=== PATIENT | female | born 1995 | race Caucasian/White ===

== ENCOUNTER 2018-03-10 11:53 | Emergency (ER) | payer BC ==
[~2018-03-10 11:53] MED LIST: AMOX250S6 PO; Dexamethasone PO; HYDR118S PO; MTF500T PO; ONDA-42 SL; ORTHO TRYCYCLINE PO; TETRACAINE LOLLIPOP PO
--- OUTSIDE RECORDS SUMMARY | 2018-03-10 12:00 | XMS REPORT ---
Author Author NAYELY DILLARD [facility] IN [facility] Address [address] [place] [address] Care Team Providers Care Loading Machine Adjuster Name Role Phone NAYELY DILLARD Unavailable PROBLEMS Type Condition ICD9-CM Code [id number] Code Onset Dates Condition Status SNOMED Code Problem Irregular menstrual bleeding N92.6 Active 61297542 Problem Obese E66.9 Active 121253147 ALLERGIES No Information ENCOUNTERS Encounter Location Date Diagnosis [place] [id number] [place] [address] November, Uses control Z30.9 [place] [address] [address] November, Irregular menstrual bleeding N92.6 ; Uses control Z30.9 and Obese E66.9 [place] [id number] [place] [address] 4[address]- 8796 Mar, Irregular menstrual bleeding N92.6 and Oral contraceptive pill surveillance Z30.41 [place] [id number] [place] [address] 07738- 9267 Feb, [facility] [id number] [place] [address] -[address]16 November, Sore throat J02.9 [place] [id number] [place] [address] Feb, Routine gynecological examination Z01.419 ; Encounter for counseling regarding contraception Z30.9 and Encounter for initial prescription of contraceptive pills Z30.011 [place] [id number] [place] [address] 47655- 9352 Dec, Encounter for Depo-Provera contraception Z30.42 [place] [address] [id number] Dec, [place] [address] [address] Oct, Environmental allergies Z91.09 [place] [id number] [place] [address] 74939- 4357 Sep, Evaluation for contraceptive injection Z30.013 ; Absence of menses due to use of contraceptive N91.2 ; Routine screening for STI (sexually transmitted infection) Z11.3 ; BMI 37.0-37.9, adult Z68.37 ; History of headache Z87.898 and Evaluation for contraceptive implant Z30.018 [place] [id number] [place] [address]37- 5869 Jun, Encounter for immunization Z23 [place] [id number] [place] [address] 25889- 7562 Apr, Headache R51 and Obese E66.9 IMMUNIZATIONS No Known Immunizations SOCIAL HISTORY Never Assessed REASON FOR VISIT PLAN OF CARE VITAL SIGNS MEDICATIONS Medication Instructions Dosage Frequency Start Date End Date Duration Status Aviane 0.1-20 MG-MCG Orally Once a day 1 tablet 24h November, 28 day (s) Active RESULTS No Results PROCEDURES No Known procedures INSTRUCTIONS MEDICATIONS ADMINISTERED No Known Medications MEDICAL (GENERAL) HISTORY Type Description Date Surgical History tonsillectomy and adenoidectomy 2013 Hospitalization History Broken ankle
--- OUTSIDE RECORDS SUMMARY | 2018-03-10 12:00 | XMS REPORT ---
Author Author DAGOBERTO LAINEZ [facility] eClinicalWorks Address Unknown Phone Unavailable Care Team Providers Care Incinerator Plant Supervisor Name Role Phone DAGOBERTO LAINEZ CP Unavailable Allergies No Known Allergies Problems Problem Type Condition Code Onset Dates Condition Status Problem Headache R51 Active Assessment Encounter for immunization Z23 Active Problem Obese E66.9 Active Medications No Known Medications Procedures Procedure Coding System Code Date MENINGOCOCCAL (MENVEO) CPT-4 17007 Jun 06, 2015 SINGLE IMMUNIZATION ADMIN CPT-4 89592 Jun 06, 2015 PROQUAD (MMR/VARICELLA) CPT-4 66963 Jun 06, 2015 IMMUNIZATION ADMIN, EACH ADD (please include units) CPT-4 27620 Jun 06, 2015 Results No Known Results Immunizations Vaccine Administration Date PROQUAD (MMR/VARICELLA) Jun 06, 2015 MENINGOCOCCAL (MENVEO) Jun 06, 2015 Summary Purpose eClinicalWorks Submission
--- OUTSIDE RECORDS SUMMARY | 2018-03-10 12:00 | XMS REPORT ---
Author Author NAYELY DILLARD [facility] Address [address] [place] [address] Care Team Providers Care Evp Global Product Leadership Name Role Phone NAYELY DILLARD Unavailable PROBLEMS Type Condition ICD9-CM Code [id number] Code Onset Dates Condition Status SNOMED Code Problem Irregular menstrual bleeding N92.6 Active 05728062 Problem Obese E66.9 Active 584629856 ALLERGIES Substance Reaction Event Type Date Status Benadryl Tongue swelling Drug Allergy November, Active ENCOUNTERS Encounter Location Date Diagnosis [place] [id number] [place] [address] 57215- 6[address] November, Uses control Z30.9 [place] [address] [address] November, Irregular menstrual bleeding N92.6 ; Uses control Z30.9 and Obese E66.9 [place] [id number] [place] [address] 21643- 6563 Mar, Irregular menstrual bleeding N92.6 and Oral contraceptive pill surveillance Z30.41 [place] [id number] [place] [address] 81576- 9594 Feb, [facility] [id number] [place] [address]11 [address] November, Sore throat J02.9 [place] [address] 390[address]- [address]1 Feb, Routine gynecological examination Z01.419 ; Encounter for counseling regarding contraception Z30.9 and Encounter for initial prescription of contraceptive pills Z30.011 [place] [id number] [place] [address] 85516- 3951 Dec, Encounter for Depo-Provera contraception Z30.42 [place] [address] [place] [address] 91032- 5083 Dec, [place] [id number] [place] [address] 81756- 7705 Oct, Environmental allergies Z91.09 [place] [id number] [place] [address] 64377- 1047 Sep, Evaluation for contraceptive injection Z30.013 ; Absence of menses due to use of contraceptive N91.2 ; Routine screening for STI (sexually transmitted infection) Z11.3 ; BMI 37.0-37.9, adult Z68.37 ; History of headache Z87.898 and Evaluation for contraceptive implant Z30.018 [place] [id number] [place] [address] 23750- 5552 Jun, Encounter for immunization Z23 [address] [address] Apr, Headache R51 and Obese E66.9 IMMUNIZATIONS No Known Immunizations SOCIAL HISTORY Never Assessed REASON FOR VISIT irregular bleeding, spotting in between periods x 6 months----Kvng, h/o PCOS PLAN OF CARE Activity Details Follow Up Dr. Johnston or Dr. Lott Reason:PCOS evaluation Pending Test TESTOSTERONE, TOTAL Pending Test TSH VITAL SIGNS Height 68 in 2017-11-13 Weight 263 lbs 2017-11-13 Temperature 98.2 degrees Fahrenheit 2017-11-13 Heart Rate 100 bpm 2017-11-13 Respiratory Rate 20 2017-11-13 BMI 39.98 kg/m2 2017-11-13 Blood pressure systolic 126 mmHg 2017-11-13 Blood pressure diastolic 70 mmHg 2017-11-13 MEDICATIONS Medication Instructions Dosage Frequency Start Date End Date Duration Status Seasonique 0.15-0.03 &0.01 MG Orally Once a day 1 tablet 24h 91 days Active Patanol 0.1 % Ophthalmic Twice a day 1 drop into affected eye 12h 25 Oct, 2015 Not-Taking RESULTS No Results PROCEDURES Procedure Date Ordered Result Body Site VENIPUNCT, ROUTINE* November 13, 2017 URINE TEST November 13, 2017 Hemoglobin Test Send Out 0 dollar November 13, 2017 ASSAY OF PROLACTIN November 13, 2017 GONADOTROPIN (FSH) November 13, 2017 ASSAY THYROID STIM HORMONE November 13, 2017 COMPREHEN METABOLIC PANEL November 13, 2017 COMPLETE CBC W/AUTO DIFF WBC November 13, 2017 CHORIONIC GONADOTROPIN TEST November 13, 2017 ASSAY OF TOTAL TESTOSTERONE November 13, 2017 INSTRUCTIONS MEDICATIONS ADMINISTERED No Known Medications MEDICAL (GENERAL) HISTORY Type Description Date Surgical History tonsillectomy and adenoidectomy 2013 Hospitalization History Broken ankle
--- OUTSIDE RECORDS SUMMARY | 2018-03-10 12:01 | XMS REPORT | Continuity of Care Document ---
Author Author [facility] Organization [facility] Address Unknown Phone Unavailable Allergies There is no data. Medications There is no data. Problems There is no data. Procedures There is no data. Results Test Result Range Genital Culture, Routine - 03/23/17 18:16 Genital Culture, Routine Note CULTURE, GENITAL - 03/23/17 18:16 Genital Culture, Routine Final report NRG Result 1 NRG Result 2 NRG CBC - 11/13/17 16:33 WHITE BLOOD CELL COUNT 10.0 Thousand/uL 3.8-10.8 RED BLOOD CELL COUNT 4.34 Million/uL 3.80-5.10 HEMOGLOBIN 12.6 g/dL 11.7-15.5 HEMATOCRIT 38.0 % 35.0-45.0 MCV 87.6 fL 80.0-100.0 MCH 29.0 pg 27.0-33.0 MCHC 33.2 g/dL 32.0-36.0 RDW 12.0 % 11.0-15.0 PLATELET COUNT 550 Thousand/uL 140-400 MPV 9.4 fL 7.5-12.5 ABSOLUTE NEUTROPHILS 6310 cells/uL 3490-8122 ABSOLUTE LYMPHOCYTES 2660 cells/uL 850-3900 ABSOLUTE MONOCYTES 860 cells/uL 200-950 ABSOLUTE EOSINOPHILS 130 cells/uL 15-500 ABSOLUTE BASOPHILS 40 cells/uL 0-200 NEUTROPHILS 63.1 % NRG LYMPHOCYTES 26.6 % NRG MONOCYTES 8.6 % NRG EOSINOPHILS 1.3 % NRG BASOPHILS 0.4 % NRG FSH, SERUM - 11/13/17 16:33 FSH 2.0 mIU/mL NRG PROLACTIN - 11/13/17 16:33 PROLACTIN 10.9 ng/mL NRG HCG, QUANTITATIVE - 11/13/17 16:33 HCG, TOTAL, QN <2 mIU/mL NRG THYROID ANALYZER - 11/13/17 16:33 TSH 1.71 mIU/L NRG A1C - 11/13/17 16:33 HEMOGLOBIN A1c 5.1 % of total Hgb <5.7 TESTOSTERONE, TOTAL, LC/MS/MS - 11/13/17 16:33 TESTOSTERONE, TOTAL, LC/MS/MS 12 ng/dL 2-45 Encounters ACCT No. Visit Date/Time Discharge Status Pt. Type Provider Facility Loc./Unit Complaint [id number] 07/07/2013 12:16:00 07/07/2013 16:45:00 DIS Emergency [id number] 06/30/2013 07:37:00 06/30/2013 13:10:00 DIS Outpatient [id number] 06/22/2013 08:07:00 06/22/2013 23:59:59 CLS Outpatient [id number] 03/27/2017 18:09:00 Document Registration [id number] 11/13/2017 16:00:00 11/13/2017 23:59:59 CLS Outpatient LYLE GONZALEZ DO [facility] [id number] 11/13/2017 16:00:00 Document Registration [id number] 03/23/2017 17:40:00 Document Registration
--- OUTSIDE RECORDS SUMMARY | 2018-03-10 12:01 | XMS REPORT ---
Author Author JONATHANEBONI [facility] Address [address] [place] [address] Care Team Providers Care Log Sorting Supervisor Name Role Phone EBONI CASTILLO Unavailable PROBLEMS Type Condition ICD9-CM Code [id number] Code Onset Dates Condition Status SNOMED Code Problem Irregular menstrual bleeding N92.6 Active 54443989 Problem Encounter for initial prescription of contraceptive pills Z30.011 Active 17568194 Problem Obese E66.9 Active 733177102 Problem Headache R51 Active 15291537 Problem Routine gynecological examination Z01.419 Active 343399863 Problem Encounter for counseling regarding contraception Z30.9 Active 48373967 ALLERGIES Substance Reaction Event Type Date Status Benadryl Tongue swelling Drug Allergy Mar, Active ENCOUNTERS Encounter Location Date Diagnosis [facility] [id number] [place] [address] 11189- 4710 Mar, Irregular menstrual bleeding N92.6 and Oral contraceptive pill surveillance Z30.41 [facility] [id number] [place] [address] 78551- 6739 Feb, [facility] IN [facility] [id number] [place] [address]50 [address] November, Sore throat J02.9 [facility] [address] [address] Feb, Routine gynecological examination Z01.419 ; Encounter for counseling regarding contraception Z30.9 and Encounter for initial prescription of contraceptive pills Z30.011 [facility] [id number] [place] [address] 80944- [address]285 Dec, Encounter for Depo-Provera contraception Z30.42 [facility] [id number] [place] [address] 80017- 9992 Dec, [place] [address] [place] [id number] [address] 25 Oct, 2015 Environmental allergies Z91.09 [place] [address] [place] [address] 07 Sep, 2015 Evaluation for contraceptive injection Z30.013 ; Absence of menses due to use of contraceptive N91.2 ; Routine screening for STI (sexually transmitted infection) Z11.3 ; BMI 37.0-37.9, adult Z68.37 ; History of headache Z87.898 and Evaluation for contraceptive implant Z30.018 [place] [address] [place] [address] 93909- 16[address] 02 Jun, 2015 Encounter for immunization Z23 [place] [address] [place] [address] 43298- 0082 22 Apr, 2015 Headache R51 and Obese E66.9 IMMUNIZATIONS No Known Immunizations SOCIAL HISTORY Never Assessed REASON FOR VISIT control f/u/Vaginal bleeding, irregular--tcuppettRN PLAN OF CARE Activity Details Follow Up 4 Weeks Reason:OCP f/u VITAL SIGNS Height 68 in 2017-03-23 Weight 244.1 lbs 2017-03-23 Temperature 98.5 degrees Fahrenheit 2017-03-23 Heart Rate 80 bpm 2017-03-23 Respiratory Rate 18 2017-03-23 BMI 37.11 kg/m2 2017-03-23 Blood pressure systolic 130 mmHg 2017-03-23 Blood pressure diastolic 92 mmHg 2017-03-23 MEDICATIONS Medication Instructions Dosage Frequency Start Date End Date Duration Status Jolessa 0.15-0.03 MG Orally Once a day 1 tablet 24h 18 Mar, 2017 90 days Active RESULTS Name Result Date Reference Range TEST, URINE (IN HOUSE) 2017-03-23 RESULTS negative Lot # [id number] Control + Exp date 08/05/18 TRICHOMONAS (IN HOUSE) 2017-03-23 TRICHOMONAS Negative Control + Lot # [id number] Exp date 05/2017 BACTERIAL VAGINOSIS (IN HOUSE) 2017-03-23 RESULTS Negative Control + Lot # [id number] Exp date 08/2017 CULTURE, GENITAL 2017-03-23 Genital Culture, Routine Final report Result 1 Result 2 GC/CHLAM PROBE (STATE) 2017-03-23 CHLAMYDIA negative GC negative PROCEDURES Procedure Date Ordered Result Body Site No Charge Mar 23, 2017 TRICHOMONAS ASSAY W/OPTIC Mar 23, 2017 CULTURE, BACTERIA, OTHER Mar 23, 2017 Bacterial Vaginosis In House Mar 23, 2017 URINE TEST Mar 23, 2017 INSTRUCTIONS MEDICATIONS ADMINISTERED No Known Medications MEDICAL (GENERAL) HISTORY Type Description Date Surgical History tonsillectomy and adenoidectomy 2013 Hospitalization History Broken ankle
--- OUTSIDE RECORDS SUMMARY | 2018-03-10 12:01 | XMS REPORT ---
Author Author ANN SMITH Organization [facility] Address [address] [place] [address] Care Team Providers Care Stainless Steel Finisher Name Role Phone ANN SMITH Unavailable PROBLEMS Type Condition ICD9-CM Code CPX19-LK Code Onset Dates Condition Status SNOMED Code Problem Irregular menstrual bleeding N92.6 Active 16653515 Problem Encounter for initial prescription of contraceptive pills Z30.011 Active 56194376 Problem Obese E66.9 Active 978986036 Problem Headache R51 Active 38069085 Problem Routine gynecological examination Z01.419 Active 655261237 Problem Encounter for counseling regarding contraception Z30.9 Active 25310934 ALLERGIES Substance Reaction Event Type Date Status Benadryl Tongue swelling Drug Allergy November, Active SOCIAL HISTORY Never Assessed PLAN OF CARE Activity Details Follow Up prn Reason: VITAL SIGNS Height 68 in 2016-11-13 Weight 230.6 lbs 2016-11-13 Temperature 97.6 degrees Fahrenheit 2016-11-13 Heart Rate 100 bpm 2016-11-13 Respiratory Rate 22 2016-11-13 BMI 35.06 kg/m2 2016-11-13 Blood pressure systolic 126 mmHg 2016-11-13 Blood pressure diastolic 90 mmHg 2016-11-13 MEDICATIONS Medication Instructions Dosage Frequency Start Date End Date Duration Status Seasonique 0.15-0.03 &0.01 MG Orally Once a day 1 tablet 24h Feb, 91 day(s) Active Amoxicillin 500 MG Orally every 12 hrs 1 capsule 12h November, November, 10 day(s) Active RESULTS Name Result Date Reference Range STREP A (IN HOUSE) 2016-11-13 STREP A negative Control + Lot # [id number] Exp date [id number] PROCEDURES Procedure Date Ordered Result Body Site STREP A ASSAY W/OPTIC November 13, 2016 IMMUNIZATIONS No Known Immunizations MEDICAL (GENERAL) HISTORY Type Description Date Surgical History tonsillectomy and adenoidectomy 2013 Hospitalization History Broken ankle
--- OUTSIDE RECORDS SUMMARY | 2018-03-10 12:01 | XMS REPORT ---
Author Author EBONI CASTILLO Organization eClinicalWorks Address Unknown Phone Unavailable Care Team Providers Care Twister Frame Tender Name Role Phone EBONI CASTILLO CP Unavailable Allergies, Adverse Reactions, Alerts Substance Reaction Event Type Benadryl Tongue swelling Drug Allergy Problems Problem Type Condition Code Onset Dates Condition Status Problem Headache R51 Active Assessment Headache R51 Active Problem Obese E66.9 Active Assessment Obese E66.9 Active Medications Medication Code System Code Instructions Start Date End Date Status Dosage Melatonin [facility] [address]-23 5 MG Orally Once a day at bedtime Apr 26, 2015 1 tablet at bedtime as needed with food Ibuprofen [facility] [address]-98 800 MG Orally Three times a day as needed for headache Apr 26, 2015 1 tablet Procedures Procedure Coding System Code Date Office Visit, New Pt., Level 3 CPT-4 90387 Apr 26, 2015 Vital Signs Date/Time: Apr 26, 2015 BMIPercentile 97.98 % Temperature 99.1 F Wt Percentile 99.01 % Weight 234.2 lbs Height 68 in Pain Scale 7 1-10 Blood Pressure Diastolic 92 mmHg Blood Pressure Systolic 124 mmHg Cardiac Monitoring Heart Rate 80 bpm Ht Percentile 93.11 % BMI 35.61 Index Results No Known Results Summary Purpose eClinicalWorks Submission
--- OUTSIDE RECORDS SUMMARY | 2018-03-10 12:01 | XMS REPORT ---
Author DOYLE Ann [facility] eClinicalWorks Address Unknown Phone Unavailable Care Team Providers Care Support Service Tech Name Role Phone DOYLE BRADFORD CP Unavailable Allergies, Adverse Reactions, Alerts Substance Reaction Event Type Benadryl Tongue swelling Drug Allergy Problems Problem Type Condition Code Onset Dates Condition Status Problem Headache R51 Active Assessment Environmental allergies Z91.09 Active Problem Obese E66.9 Active Medications Medication Code System Code Instructions Start Date End Date Status Dosage Patanol [facility] [address]-52 0.1 % Ophthalmic Twice a day October 29, 2015 1 drop into affected eye Procedures Procedure Coding System Code Date DEXAMETHASONE 4MG/ML (PER 1 MG) CPT-4 J1100 October 29, 2015 THER/PROPH/DIAG INJ, SC/IM CPT-4 52326 October 29, 2015 Office Visit, Est Pt., Level 3 CPT-4 70238 October 29, 2015 DEPO MEDROL 40 MG/ML CPT-4 J1030 October 29, 2015 Vital Signs Date/Time: October 29, 2015 Temperature 97.0 F Weight 228.4 lbs Height 68 in BMI 34.72 Index Blood Pressure Diastolic 82 mmHg Blood Pressure Systolic 128 mmHg Cardiac Monitoring Heart Rate 88 bpm BMIPercentile 97.52 % Wt Percentile 98.88 % Results No Known Results Summary Purpose eClinicalWorks Submission
--- OUTSIDE RECORDS SUMMARY | 2018-03-10 12:01 | XMS REPORT ---
Author Author JAY HERNANDEZ Organization [employer] Address Unknown Phone Unavailable Care Team Providers Care On Site Construction Superintendent Name Role Phone JAY HERNANDEZ CP Unavailable Allergies, Adverse Reactions, Alerts Substance Reaction Event Type Benadryl Tongue swelling Drug Allergy Problems Problem Type Condition Code Onset Dates Condition Status Assessment Encounter for initial prescription of contraceptive pills Z30.011 Active Problem Encounter for counseling regarding contraception Z30.9 Active Problem Encounter for initial prescription of contraceptive pills Z30.011 Active Problem Routine gynecological examination Z01.419 Active Assessment Routine gynecological examination Z01.419 Active Assessment Encounter for counseling regarding contraception Z30.9 Active Problem Obese E66.9 Active Problem Headache R51 Active Medications Medication Code System Code Instructions Start Date End Date Status Dosage Seasonique [facility] [address]-97 0.15-0.03 &0.01 MG Orally Once a day Feb 28, 2016 1 tablet Depo-Provera [facility] [address]-15 150 MG/ML Intramuscular 1 ml Procedures Procedure Coding System Code Date No Charge CPT-4 61107 Feb 28, 2016 [place] VAG, DNA, DIR PROBE CPT-4 32071 Feb 28, 2016 CULTURE, BACTERIA, OTHER CPT-4 09410 Feb 28, 2016 Preventive Care Est Pt. Age 18-39 CPT-4 66825 Feb 28, 2016 URINE TEST CPT-4 37609 Feb 28, 2016 Vital Signs Date/Time: Feb 28, 2016 Cardiac Monitoring Heart Rate 84 bpm Weight 201.0 lbs Height 68 in Wt Percentile 97.57 % BMI 30.56 Index Blood Pressure Diastolic 88 mmHg Blood Pressure Systolic 128 mmHg BMIPercentile 94.68 % Results No Known Results Summary Purpose eClinicalWorks Submission
--- NOTE | 2018-03-10 12:13 | ED General ---
General Stated Complaint: WEAK/FEELS LIKE GOING TO PASS OUT Source of Information: Patient Exam Limitations: No Limitations History of Present Illness Date Seen by Provider: Mar 10, 2018 Time Seen by Provider: 12:12 Initial Comments To ER With reports of diffuse weakness, feels like she is going to pass out. States that she feels tingling from her head to her toes. Palpitations and shortness of breath. She is recently had an upper respiratory infection with runny nose and she took an fzir-rfw-soabfyn equate version of cough and cold remedy at 7:30 this morning. The symptoms began 30 minutes ago. Timing/Duration: 1-2 Days Severity: Moderate Allergies and Home Medications Allergies Coded Allergies: promethazine (Unverified Allergy, 06/22/13) Home Medications [Ortho-Trycycline] , 25 MG PO DAILY, (Reported) Patient Home Medication List Home Medication List Reviewed: Yes Review of Systems Review of Systems Constitutional: see HPI EENTM: see HPI Respiratory: see HPI, short of breath Cardiovascular: no symptoms reported Genitourinary: no symptoms reported Musculoskeletal: no symptoms reported Skin: no symptoms reported Psychiatric/Neurological: No Symptoms Reported Hematologic/Lymphatic: No Symptoms Reported Past Jesfpfc-Mfyhrj-Ogddoo Hx Patient Social History Recent Foreign Travel: No Contact w/Someone Who Travel: No Past Medical History Reproductive Disorders: Yes (PCOS) Physical Exam Vital Signs Vital Signs - First Documented 03/10/18 12:42 Temp 97.7 Pulse 112 Resp 18 B/P (MAP) 141/77 (98) Pulse Ox 99 O2 Delivery Room Air Capillary Refill : Height, Weight, BMI Height: '" Weight: 210lbs. oz. 95.774170id; BMI Method:Stated General Appearance: No Apparent Distress, WD/WN, Anxious, Obese HEENT: PERRL/EOMI, TMs Normal Neck: Full Range of Motion, Normal Inspection Respiratory: No Accessory Muscle Use, No Respiratory Distress Cardiovascular: Normal Peripheral Pulses, Tachycardia Gastrointestinal: No Pulsatile Mass, Non Tender, Soft Extremity: Normal Capillary Refill, Normal Inspection Neurologic/Psychiatric: Alert, Oriented x3 Skin: Normal Color, Warm/Dry Progress/Results/Core Measures Suspected Sepsis SIRS Temperature: Pulse: Respiratory Rate: Laboratory Tests 03/10/18 12:06: White Blood Count 13.5H Blood Pressure / Mean: Laboratory Tests 03/10/18 12:06: Creatinine 0.73, Platelet Count 729H, Total Bilirubin 0.2 Results/Orders Lab Results Laboratory Tests Test 03/10/18 12:05 03/10/18 12:06 03/10/18 13:38 Range/Units Glucometer 103 70-110 MG/DL White Blood Count 13.5 H 4.3-11.0 10^3/uL Red Blood Count 5.01 4.35-5.85 10^6/uL Hemoglobin 14.9 11.5-16.0 G/DL Hematocrit 44 35-52 % Mean Corpuscular Volume 87 80-99 FL Mean Corpuscular Hemoglobin 30 25-34 PG Mean Corpuscular Hemoglobin Concent 34 32-36 G/DL Red Cell Distribution Width 12.9 10.0-14.5 % Platelet Count 729 H 130-400 10^3/uL Mean Platelet Volume 9.0 7.4-10.4 FL Neutrophils (%) (Auto) 68 42-75 % Lymphocytes (%) (Auto) 21 12-44 % Monocytes (%) (Auto) 10 0-12 % Eosinophils (%) (Auto) 1 0-10 % Basophils (%) (Auto) 0 0-10 % Neutrophils # (Auto) 9.1 H 1.8-7.8 X 10^3 Lymphocytes # (Auto) 2.8 1.0-4.0 X 10^3 Monocytes # (Auto) 1.4 H 0.0-1.0 X 10^3 Eosinophils # (Auto) 0.2 0.0-0.3 10^3/uL Basophils # (Auto) 0.0 0.0-0.1 10^3/uL D-Dimer 0.32 0.00-0.49 UG/ML Sodium Level 136 135-145 MMOL/L Potassium Level 3.4 L 3.6-5.0 MMOL/L Chloride Level 104 98-107 MMOL/L Carbon Dioxide Level 18 L 21-32 MMOL/L Anion Gap 14 5-14 MMOL/L Blood Urea Nitrogen 8 7-18 MG/DL Creatinine 0.73 0.60-1.30 MG/DL Estimat Glomerular Filtration Rate > 60 BUN/Creatinine Ratio 11 Glucose Level 101 70-105 MG/DL Calcium Level 9.7 8.5-10.1 MG/DL Corrected Calcium 9.3 8.5-10.1 MG/DL Total Bilirubin 0.2 0.1-1.0 MG/DL Aspartate Amino Transf (AST/SGOT) 16 5-34 U/L Alanine Aminotransferase (ALT/SGPT) 19 0-55 U/L Alkaline Phosphatase 120 40-136 U/L Total Protein 7.7 6.4-8.2 GM/DL Albumin 4.5 3.2-4.5 GM/DL Thyroid Stimulating Hormone (TSH) 1.91 0.35-4.94 UIU/ML Urine Color YELLOW Urine Clarity CLEAR Urine pH 6.5 5-9 Urine Specific [place] 1.010 L 1.016-1.022 Urine Protein 1+ H NEGATIVE Urine Glucose (UA) NEGATIVE NEGATIVE Urine Ketones NEGATIVE NEGATIVE Urine Nitrite NEGATIVE NEGATIVE Urine Bilirubin NEGATIVE NEGATIVE Urine Urobilinogen NORMAL NORMAL MG/DL Urine Leukocyte Esterase NEGATIVE NEGATIVE Urine RBC (Auto) 3+ H NEGATIVE Urine RBC RARE /HPF Urine WBC 0-2 /HPF Urine Squamous Epithelial Cells 0-2 /HPF Urine Renal Epithelial Cells NONE /HPF Urine Crystals NONE /LPF Urine Bacteria NEGATIVE /HPF Urine Casts NONE /LPF Urine Mucus NEGATIVE /LPF Urine Yeast FEW H /HPF Urine Culture Indicated NO Urine Opiates Screen NEGATIVE NEGATIVE Urine Oxycodone Screen NEGATIVE NEGATIVE Urine Methadone Screen NEGATIVE NEGATIVE Urine Propoxyphene Screen NEGATIVE NEGATIVE Urine Barbiturates Screen NEGATIVE NEGATIVE Ur Tricyclic Antidepressants Screen NEGATIVE NEGATIVE Urine Phencyclidine Screen NEGATIVE NEGATIVE Urine Amphetamines Screen NEGATIVE NEGATIVE Urine Methamphetamines Screen NEGATIVE NEGATIVE Urine Benzodiazepines Screen NEGATIVE NEGATIVE Urine Cocaine Screen NEGATIVE NEGATIVE Urine Cannabinoids Screen NEGATIVE NEGATIVE My Orders Orders - BRAYAN PUENTES APRN Cbc With Automated Diff (03/10/18 12:10) Comprehensive Metabolic Panel (03/10/18 12:10) Thyroid Stimulating Hormone (03/10/18 12:10) Iv Heplock-Insert (Order) (03/10/18 12:10) Ua Culture If Indicated (03/10/18 12:10) Drug Screen Stat (Urine) (03/10/18 12:10) Continuous Ekg Monitoring (03/10/18 12:10) Ekg Tracing (03/10/18 12:10) Lorazepam Injection (Ativan Injection) (03/10/18 12:15) Tick Panel With Lyme Eia (03/10/18 12:41) Fibrin Degradation Products (03/10/18 13:39) Lorazepam Injection (Ativan Injection) (03/10/18 13:45) Ns Iv 1000 Ml (Sodium Chloride 0.9%) (03/10/18 13:45) Medications Given in ED Current Medications Medications Dose Ordered Sig/Jayesh Route Start Time Stop Time Status Last Admin Dose Admin Lorazepam 0.5 mg ONCE PRN IVP 03/10/18 12:15 03/10/18 13:54 0.5 MG Vital Signs/I&O 03/10/18 12:42 Temp 97.7 Pulse 112 Resp 18 B/P (MAP) 141/77 (98) Pulse Ox 99 O2 Delivery Room Air Capillary Refill : Departure Communication (Admissions) 1432- patient reports that she is feeling better at this time. She would like a prescription for something for the anxiety in case this happens again at home. I discussed with her the thrombocytosis and the need for follow-up with primary care as she may need a hematology referral. Impression Primary Impression: Diffuse tingling Additional Impressions: Thrombocytosis Dyspnea Disposition: HOME, SELF-CARE Condition: Improved Departure-Patient Inst. Decision time for Depature: 14:09 Referrals: KAITLYNN HOWE MD (PCP/Family) Primary Care Physician Patient Instructions: Paresthesias (DC), Shortness of Breath (Dyspnea) Add. Discharge Instructions: 1. Follow-up with your doctor this week for recheck. Your platelet count was elevated today but it has been elevated for several years. This is not the cause of your symptoms today but should be further evaluated. Take a baby aspirin daily. Take the anxiety medication on an as-needed basis. Avoid any additional cough/cold remedies. Return to ER for any concerns. Scripts Lorazepam (Lorazepam) 1 Mg Tablet 1 MG PO BID PRN for ANXIETY, #10 TAB Prov: BRAYAN PUENTES APRN 03/10/18 Work/School Note: Work Release Form Date Seen in the Emergency Department: Mar 10, 2018 Return to Work: Mar 11, 2018 Copy Copies To 1: LYLE GONZALEZ PETER J APRN Mar 10, 2018 12:13
[2018-03-10 12:17] LABS: BASOPHILS % (AUTO) 0 % (0-10); EOSINOPHILS # (AUTO) 0.2 10^3/uL (0.0-0.3); EOSINOPHILS % (AUTO) 1 % (0-10); HEMATOCRIT 44 % (35-52); HEMOGLOBIN 14.9 G/DL (11.5-16.0); LYMPHOCYTES # (AUTO) 2.8 X 10^3 (1.0-4.0); LYMPHOCYTES % (AUTO) 21 % (12-44); MEAN CORPUSCULAR HEMOGLOBIN 30 PG (25-34); MEAN CORPUSCULAR HGB CONC 34 G/DL (32-36); MEAN CORPUSCULAR VOLUME 87 FL (80-99); MONOCYTES # (AUTO) 1.4 X 10^3 (0.0-1.0); MONOCYTES % (AUTO) 10 % (0-12); NEUTROPHILS # (AUTO) 9.1 X 10^3 (1.8-7.8); NEUTROPHILS % (AUTO) 68 % (42-75); PLATELET COUNT 729 10^3/uL (130-400); RED BLOOD COUNT 5.01 10^6/uL (4.35-5.85); RED CELL DISTRIBUTION WIDTH 12.9 % (10.0-14.5); WHITE BLOOD COUNT 13.5 10^3/uL (4.3-11.0)
[2018-03-10] MEDS: LORazepam INJ 2 MG/ML (ATIVAN) VIAL IVP PRN ×2 (12:36→13:54)
[2018-03-10 12:45] LABS: ALANINE AMINOTRANSFERASE 19 U/L (0-55); ALBUMIN 4.5 GM/DL (3.2-4.5); ALKALINE PHOSPHATASE 120 U/L (40-136); BILIRUBIN,TOTAL 0.2 MG/DL (0.1-1.0); BUN/CREATININE RATIO 11; CALCIUM 9.7 MG/DL (8.5-10.1); CARBON DIOXIDE 18 MMOL/L (21-32); CHLORIDE 104 MMOL/L (98-107); CREATININE SERUM 0.73 MG/DL (0.60-1.30); GFR ESTIMATED > 60; GLUCOSE 101 MG/DL (70-105); POTASSIUM 3.4 MMOL/L (3.6-5.0); SODIUM 136 MMOL/L (135-145); TOTAL PROTEIN 7.7 GM/DL (6.4-8.2)
[2018-03-10] MEDS ORDERED: NS IV 1000 ML 1,000 ML IV SCH (13:45)
[2018-03-10] MEDS ORDERED: LORazepam INJ 2 MG/ML (ATIVAN) VIAL IVP PRN (13:45)
[2018-03-10 13:49] LABS: BILIRUBIN,URINE NEGATIVE (NEGATIVE); CLARITY,URINE CLEAR; COLOR,URINE YELLOW; GLUCOSE, URINE (UA) NEGATIVE (NEGATIVE); KETONES,URINE NEGATIVE (NEGATIVE); LEUKOCYTE ESTERASE ,URINE NEGATIVE (NEGATIVE); NITRITE,URINE NEGATIVE (NEGATIVE); PH,URINE 6.5 (5-9); PROTEIN,URINE 1+ (NEGATIVE); UROBILINOGEN,URINE NORMAL (NORMAL)
[2018-03-10 14:01] LABS: RBC,URINE RARE /HPF; WBC,URINE 0-2 /HPF
[2018-03-10 14:02] LABS: BACTERIA,URINE NEGATIVE /HPF; SQUAMOUS EPITHELIAL CELL,UR 0-2 /HPF; YEAST,URINE FEW /HPF
[2018-03-10 14:05] LABS: AMPHETAMINE SCREEN, URINE NEGATIVE (NEGATIVE); BARBITURATE SCREEN URINE NEGATIVE (NEGATIVE); BENZODIAZEPINES SCREEN URINE NEGATIVE (NEGATIVE); CANNABINOID SCREEN, URINE NEGATIVE (NEGATIVE); COCAINE SCREEN URINE NEGATIVE (NEGATIVE); METHADONE STAT NEGATIVE (NEGATIVE); METHAMPHETAMINE SCREEN URINE S NEGATIVE (NEGATIVE); OPIATE SCREEN URINE NEGATIVE (NEGATIVE); OXYCODONE STAT NEGATIVE (NEGATIVE); PROPOXYPHENE STAT NEGATIVE (NEGATIVE); TRICYCLIC ANTIDEPRESSANTS SCRE NEGATIVE (NEGATIVE)
[2018-03-10] MEDS ORDERED: LORA1TAB PO (14:34)
[2018-03-10 15:00] VITALS: BP 144/96
== END 2018-03-10 15:00 | disposition home or self-care (01) ==
LOC: EDUNIT# 11:53 → ER 11:55
DX: R20.2 Paresthesia of skin (principal); D47.3 Essential (hemorrhagic) thrombocythemia; R06.00 Dyspnea, unspecified; Z88.8 Allergy status to other drugs, medicaments and biological substances; Z87.448 Personal history of other diseases of urinary system
CPT/HCPCS: 36415; 80053; 80306; 81000; 82962; 84443; 85025; 85379; 86618; 86666; 86668; 86757; 93005; 96374; 96376

== ENCOUNTER 2018-03-16 09:25 | Outpatient (RCR) | payer BC ==
[~2018-03-16 09:25] MED LIST changes: +LORA1TAB PO
[2018-03-16 09:49] LABS: BASOPHILS % (AUTO) 0 % (0-10); EOSINOPHILS # (AUTO) 0.2 10^3/uL (0.0-0.3); EOSINOPHILS % (AUTO) 2 % (0-10); HEMATOCRIT 39 % (35-52); LYMPHOCYTES # (AUTO) 2.5 X 10^3 (1.0-4.0); LYMPHOCYTES % (AUTO) 24 % (12-44); MEAN CORPUSCULAR HEMOGLOBIN 29 PG (25-34); MEAN CORPUSCULAR HGB CONC 34 G/DL (32-36); MEAN CORPUSCULAR VOLUME 87 FL (80-99); MEAN PLATELET VOLUME 8.8 FL (7.4-10.4); MONOCYTES # (AUTO) 0.9 X 10^3 (0.0-1.0); MONOCYTES % (AUTO) 9 % (0-12); NEUTROPHILS % (AUTO) 66 % (42-75); PLATELET COUNT 600 10^3/uL (130-400); RED BLOOD COUNT 4.42 10^6/uL (4.35-5.85); WHITE BLOOD COUNT 10.7 10^3/uL (4.3-11.0)
[2018-03-16 10:08] LABS: ALANINE AMINOTRANSFERASE 17 U/L (0-55); ALBUMIN 4.2 GM/DL (3.2-4.5); ALKALINE PHOSPHATASE 116 U/L (40-136); BILIRUBIN,TOTAL 0.3 MG/DL (0.1-1.0); BUN/CREATININE RATIO 13; CALCIUM 9.6 MG/DL (8.5-10.1); CARBON DIOXIDE 22 MMOL/L (21-32); CHLORIDE 107 MMOL/L (98-107); CREATININE SERUM 0.67 MG/DL (0.60-1.30); GFR ESTIMATED > 60; GLUCOSE 95 MG/DL (70-105); POTASSIUM 3.9 MMOL/L (3.6-5.0); SODIUM 139 MMOL/L (135-145); TOTAL PROTEIN 7.2 GM/DL (6.4-8.2)
== END 2018-04-04 | disposition home or self-care (01) ==
LOC: ONC 09:25
PROVIDERS: ATTEND Internal Medicine Hematology & Oncology
DX: D47.3 Essential (hemorrhagic) thrombocythemia (principal); E66.9 Obesity, unspecified; F43.9 Reaction to severe stress, unspecified; Z79.82 Long term (current) use of aspirin
CPT/HCPCS: 36415; 80053; 81270; 85025; 99214

== ENCOUNTER → 2018-04-19 | Outpatient (CLI) | payer BC ==
[~2018-04-19] MED LIST changes: +GADOBUTROL 15 MMOL/15 ML (GADAVIST) VIAL IV ONE
--- NOTE | 2018-04-19 12:29 | Diagnostic Imaging Report ---
PROCEDURE: MR imaging of the brain with and without contrast. TECHNIQUE: Multiplanar, multisequence MR imaging of the brain was performed with and without contrast. INDICATION: Dizziness and head pressure for 4 weeks. No prior studies are available for comparison. FINDINGS: The ventricles and sulci are within normal limits. No sulcal effacement, midline shift or hemorrhage is detected. No diffusion restriction is identified. The normal expected flow-voids within the carotid siphons are seen. The corpus callosum is unremarkable. The sella and parasellar structures are unremarkable. No abnormal enhancement is seen following contrast administration. IMPRESSION: Unremarkable pre-and postcontrast MRI of the brain. Dictated by: Dictated on workstation # [id number]
== END ==
LOC: RAD 10:54
PROVIDERS: ATTEND Nurse Practitioner Primary Care
DX: G45.9 Transient cerebral ischemic attack, unspecified (principal); D47.3 Essential (hemorrhagic) thrombocythemia
CPT/HCPCS: 70553

== ENCOUNTER 2018-04-21 15:00 | Outpatient (RCR) | payer BC, OTHER ==
[~2018-04-21 15:00] MED LIST changes: -GADOBUTROL 15 MMOL/15 ML (GADAVIST) VIAL IV ONE
[2018-04-21 15:15] LABS: BASOPHILS % (AUTO) 0 % (0-10); EOSINOPHILS # (AUTO) 0.1 10^3/uL (0.0-0.3); EOSINOPHILS % (AUTO) 1 % (0-10); HEMATOCRIT 38 % (35-52); HEMOGLOBIN 13.3 G/DL (11.5-16.0); LYMPHOCYTES # (AUTO) 2.7 X 10^3 (1.0-4.0); LYMPHOCYTES % (AUTO) 24 % (12-44); MEAN CORPUSCULAR HEMOGLOBIN 30 PG (25-34); MEAN CORPUSCULAR HGB CONC 35 G/DL (32-36); MEAN CORPUSCULAR VOLUME 88 FL (80-99); MEAN PLATELET VOLUME 9.2 FL (7.4-10.4); MONOCYTES % (AUTO) 9 % (0-12); NEUTROPHILS # (AUTO) 7.6 X 10^3 (1.8-7.8); NEUTROPHILS % (AUTO) 67 % (42-75); PLATELET COUNT 509 10^3/uL (130-400); RED BLOOD COUNT 4.38 10^6/uL (4.35-5.85); RED CELL DISTRIBUTION WIDTH 12.9 % (10.0-14.5); WHITE BLOOD COUNT 11.4 10^3/uL (4.3-11.0)
[2018-04-21 15:37] LABS: ALANINE AMINOTRANSFERASE 27 U/L (0-55); ALBUMIN 4.5 GM/DL (3.2-4.5); ALKALINE PHOSPHATASE 104 U/L (40-136); BILIRUBIN,TOTAL 0.3 MG/DL (0.1-1.0); BUN/CREATININE RATIO 10; CALCIUM 9.8 MG/DL (8.5-10.1); CARBON DIOXIDE 24 MMOL/L (21-32); CHLORIDE 105 MMOL/L (98-107); CREATININE SERUM 0.72 MG/DL (0.60-1.30); GFR ESTIMATED > 60; GLUCOSE 97 MG/DL (70-105); POTASSIUM 3.5 MMOL/L (3.6-5.0); SODIUM 139 MMOL/L (135-145); TOTAL PROTEIN 7.5 GM/DL (6.4-8.2)
== END 2018-07-20 | disposition home or self-care (01) ==
LOC: ONC 15:00
PROVIDERS: ATTEND Internal Medicine Hematology & Oncology
DX: D47.3 Essential (hemorrhagic) thrombocythemia (principal); E66.9 Obesity, unspecified; F43.9 Reaction to severe stress, unspecified; Z79.82 Long term (current) use of aspirin
CPT/HCPCS: 36415; 80053; 85025; 99213

== ENCOUNTER → 2018-11-05 | Outpatient (CLI) | payer BC, OTHER ==
[2018-11-05 08:38] LABS: BASOPHILS % (AUTO) 0 % (0-10); EOSINOPHILS # (AUTO) 0.1 10^3/uL (0.0-0.3); EOSINOPHILS % (AUTO) 1 % (0-10); HEMATOCRIT 39 % (35-52); HEMOGLOBIN 13.1 G/DL (11.5-16.0); LYMPHOCYTES # (AUTO) 2.3 X 10^3 (1.0-4.0); LYMPHOCYTES % (AUTO) 25 % (12-44); MEAN CORPUSCULAR HEMOGLOBIN 30 PG (25-34); MEAN CORPUSCULAR HGB CONC 33 G/DL (32-36); MEAN CORPUSCULAR VOLUME 91 FL (80-99); MEAN PLATELET VOLUME 9.2 FL (7.4-10.4); MONOCYTES # (AUTO) 0.9 X 10^3 (0.0-1.0); MONOCYTES % (AUTO) 10 % (0-12); NEUTROPHILS # (AUTO) 5.7 X 10^3 (1.8-7.8); NEUTROPHILS % (AUTO) 64 % (42-75); PLATELET COUNT 406 10^3/uL (130-400); RED CELL DISTRIBUTION WIDTH 12.3 % (10.0-14.5)
[2018-11-05 08:59] LABS: ALANINE AMINOTRANSFERASE 30 U/L (0-55); ALBUMIN 4.3 GM/DL (3.2-4.5); ALKALINE PHOSPHATASE 125 U/L (40-136); AMYLASE 40 U/L (25-125); BILIRUBIN,TOTAL 0.3 MG/DL (0.1-1.0); BUN/CREATININE RATIO 16; CALCIUM 9.6 MG/DL (8.5-10.1); CARBON DIOXIDE 24 MMOL/L (21-32); CHLORIDE 105 MMOL/L (98-107); CREATININE SERUM 0.73 MG/DL (0.60-1.30); GFR ESTIMATED > 60; GLUCOSE 92 MG/DL (70-105); LIPASE 25 U/L (8-78); SODIUM 138 MMOL/L (135-145); TOTAL PROTEIN 7.2 GM/DL (6.4-8.2)
== END ==
LOC: LAB 08:23
PROVIDERS: ATTEND Internal Medicine
DX: R10.84 Generalized abdominal pain (principal); R63.4 Abnormal weight loss; Z87.42 Personal history of other diseases of the female genital tract
CPT/HCPCS: 36415; 80053; 82150; 83690; 85025

== ENCOUNTER → 2018-11-09 | Outpatient (CLI) | payer BC ==
--- NOTE | 2018-11-09 15:04 | Diagnostic Imaging Report ---
PROCEDURE: US Hepatic (Liver). TECHNIQUE: Multiple real-time grayscale images were obtained over the right upper quadrant in various projections. INDICATION: Abnormal liver enzymes. FINDINGS: The liver is normal in size at 15 cm. No discrete liver mass is identified. Portal vein is patent and shows normal direction of flow. Gallbladder is without stones or sludge. No wall thickening or biliary ductal dilatation is seen. Pancreas is poorly visualized due to bowel gas. Right kidney is unremarkable. There is no ascites. IMPRESSION: Unremarkable right upper quadrant ultrasound. Dictated by: Dictated on workstation # [id number]
== END ==
LOC: RAD 07:59
PROVIDERS: ATTEND Internal Medicine
DX: R74.8 Abnormal levels of other serum enzymes (principal)
CPT/HCPCS: 76705

== ENCOUNTER → 2018-12-13 | Outpatient (CLI) | payer BC ==
[~2018-12-13] MED LIST changes: +ASPI-999 PO; +CATHETER FLUSH 10 ML SYR IV PRN; +CIPR500T4 PO; +CYCL10TA9 PO; +HYDR-3816 PO; +METR500T PO; +ONDN4T PO; +RANI150T46 PO; +morphine INJ 10 MG/ML 1ML (SYR OR VIAL) IVP STA
--- NOTE | 2018-12-13 12:40 | Diagnostic Imaging Report ---
EXAMINATION: Hepatobiliary scan without ejection fraction. INDICATION: Right upper quadrant pain. COMPARISON: There are no prior nuclear medicine studies available for comparison. The hepatic ultrasound exam of 11/09/2018 failed to show any abnormality of the liver or gallbladder. FINDINGS: 5.4 mCi of 99m technetium Choletec was administered. There was uptake and excretion of the radiotracer by the liver. However, there was no accumulation of the radiotracer within the gallbladder at 60 minutes. A followup image taken 10 minutes later again failed to show any uptake of the radiotracer by the gallbladder. Subsequently, 2 mg of morphine was administered. 1.0 mCi of 99m technetium Choletec was also reinjected. Following the administration of morphine, there was uptake of the radiotracer by the gallbladder at 80 minutes. IMPRESSION: 1. There is delayed uptake of the radiotracer by the gallbladder. This does suggest that there could be elements of both acute and chronic cholecystitis present. Clinical followup is recommended. 2. There is extension of the radiotracer into the small bowel indicating the common bile duct is not obstructed. Dictated by: Dictated on workstation # [id number]
== END ==
LOC: CARD 09:54
PROVIDERS: ATTEND Internal Medicine
DX: R10.11 Right upper quadrant pain (principal); K82.8 Other specified diseases of gallbladder
CPT/HCPCS: 78226

== ENCOUNTER 2018-12-16 05:30 | Outpatient (CLI) | payer BC ==
[~2018-12-16] VITALS: Ht 180.3 cm; Wt 94.3 kg
[~2018-12-16 05:30] MED LIST changes: -ASPI-999 PO; -CATHETER FLUSH 10 ML SYR IV PRN; -CIPR500T4 PO; -CYCL10TA9 PO; -HYDR-3816 PO; -METR500T PO; -ONDN4T PO; -RANI150T46 PO; -morphine INJ 10 MG/ML 1ML (SYR OR VIAL) IVP STA
[2018-12-16] MEDS ORDERED: ASPI-999 PO (12:33)
[2018-12-16] MEDS ORDERED: RANI150T46 PO (12:33)
[2018-12-16] MEDS ORDERED: CYCL10TA9 PO (12:33)
[2018-12-17] MEDS ORDERED: METR500T PO (08:36)
[2018-12-17] MEDS ORDERED: CIPR500T4 PO (08:36)
[2018-12-17] MEDS ORDERED: HYDR-3816 PO ×2 (08:36→08:40)
[2018-12-17] MEDS ORDERED: ONDN4T PO (12:42)
== END 2018-12-16 12:55 ==
LOC: PREOP 05:30
PROVIDERS: ATTEND Surgery
DX: Z01.818 Encounter for other preprocedural examination (principal); K81.1 Chronic cholecystitis

== ENCOUNTER 2018-12-17 07:35 | Day surgery (SDC) | payer BC ==
[2018-12-17] VITALS (10 sets, daily range): BP systolic 118–155; BP diastolic 84–103
[~2018-12-17] VITALS: Ht 180.3 cm; Wt 94.3 kg
[~2018-12-17 07:35] MED LIST changes: +ASPI-999 PO; +CYCL10TA9 PO; +RANI150T46 PO
[2018-12-17] MEDS ORDERED: ceFAZolin 2 GM/50 ML NS 50 ML IV ONE (08:00)
[2018-12-17] MEDS ORDERED: CATHETER FLUSH 10 ML SYR IV PRN (08:00)
--- OUTSIDE RECORDS SUMMARY | 2018-12-17 08:00 | XMS REPORT ---
Author Author DADA COYNE [facility] Address [address] [place] [address] Care Team Providers Care Documentation Coordinator Name Role Phone DADA COYNE Unavailable PROBLEMS Type Condition ICD9-CM Code [id number] Code Onset Dates Condition Status SNOMED Code Problem Irregular menstrual bleeding N92.6 Active 63536361 Problem Obese E66.9 Active 367679400 Problem Thrombocytosis D47.3 Active 0901096 ALLERGIES Substance Reaction Event Type Date Status Benadryl Tongue swelling Drug Allergy Feb, Active ENCOUNTERS Encounter Location Date Diagnosis [place] [id number] [address] Mar, [facility] [address] [address] Feb, Well woman exam Z01.419 ; Weight loss counseling, encounter for Z71.3 ; Screening examination for sexually transmitted disease Z11.3 and BMI 40.0- 44.9, adult Z68.41 [place] [address] [place] [id number] [place] [phone] November, Uses control Z30.9 [place] [address] [address] November, Irregular menstrual bleeding N92.6 ; Uses control Z30.9 and Obese E66.9 [place] [address] [address] Mar, Irregular menstrual bleeding N92.6 and Oral contraceptive pill surveillance Z30.41 [place] [address] [place] [id number] [place] [phone] Feb, [facility] [address] [place] [address] November, Sore throat J02.9 [place] [address] [address] Feb, Routine gynecological examination Z01.419 ; Encounter for counseling regarding contraception Z30.9 and Encounter for initial prescription of contraceptive pills Z30.011 [place] [address] [address] Dec, Encounter for Depo-Provera contraception Z30.42 [place] [address] [address] Dec, [place] [address] [address] Oct, Environmental allergies Z91.09 [place] [address] [address] Sep, Evaluation for contraceptive injection Z30.013 ; Absence of menses due to use of contraceptive N91.2 ; Routine screening for STI (sexually transmitted infection) Z11.3 ; BMI 37.0-37.9, adult Z68.37 ; History of headache Z87.898 and Evaluation for contraceptive implant Z30.018 [place] [address] [address] Jun, Encounter for immunization Z23 [place] [address] [address] Apr, Headache R51 and Obese E66.9 IMMUNIZATIONS No Known Immunizations SOCIAL HISTORY Never Assessed REASON FOR VISIT Well Woman Exam -- suhail jett, needing refill on BC pills PLAN OF CARE Activity Details Follow Up 4 Weeks Reason:wt loss VITAL SIGNS Height 68 in 2018-02-26 Weight 265.0 lbs 2018-02-26 Temperature 98.7 degrees Fahrenheit 2018-02-26 Heart Rate 88 bpm 2018-02-26 Respiratory Rate 22 2018-02-26 BMI 40.29 kg/m2 2018-02-26 Blood pressure systolic 128 mmHg 2018-02-26 Blood pressure diastolic 86 mmHg 2018-02-26 MEDICATIONS Medication Instructions Dosage Frequency Start Date End Date Duration Status Aviane 0.1-20 MG-MCG Orally Once a day 1 tablet 24h November, 28 day(s) Active Phentermine HCl 37.5 MG Orally Once a day 1 tablet 24h Feb, Mar, 28 days Active RESULTS Name Result Date Reference Range TEST, URINE (IN HOUSE) 2018-02-26 RESULTS negative Lot # [id number] Control + Exp date 07/2019 TRICHOMONAS (IN HOUSE) 2018-02-26 TRICHOMONAS negative Control + Lot # [id number] Exp date 01/21 PROCEDURES Procedure Date Ordered Result Body Site TRICHOMONAS ASSAY W/OPTIC Feb 26, 2018 URINE TEST Feb 26, 2018 INSTRUCTIONS MEDICATIONS ADMINISTERED No Known Medications MEDICAL (GENERAL) HISTORY Type Description Date Surgical History tonsillectomy and adenoidectomy 2013 Hospitalization History Broken ankle
--- OUTSIDE RECORDS SUMMARY | 2018-12-17 08:00 | XMS REPORT ---
Author Author DADA COYNE [facility] Address [address] [place] [address] Care Team Providers Care Toe Sewer Name Role Phone DADA COYNE Unavailable PROBLEMS Type Condition ICD9-CM Code QOY02-HM Code Onset Dates Condition Status SNOMED Code Problem Anxiety F41.9 Active 48643112 Problem Irregular menstrual bleeding N92.6 Active 12182712 Problem Obese E66.9 Active 832402169 Problem Thrombocytosis D47.3 Active 5808587 ALLERGIES Substance Reaction Event Type Date Status Benadryl Tongue swelling Drug Allergy Mar, Active ENCOUNTERS Encounter Location Date Diagnosis [place] [address] [place] [id number] [place] [address] Mar, Anxiety F41.9 ; Thrombocytosis D47.3 and Palpitations R00.2 [place] [address] [place] [id number] [place] [address] Mar, [place] [address] [place] [id number] [place] [address] Feb, Well woman exam Z01.419 ; Weight loss counseling, encounter for Z71.3 ; Screening examination for sexually transmitted disease Z11.3 and BMI 40.0- 44.9, adult Z68.41 [place] [address] [place] [id number] [place] [address] November, Uses control Z30.9 [place] [address] [address] November, Irregular menstrual bleeding N92.6 ; Uses control Z30.9 and Obese E66.9 [place] [address] [place] [id number] [place] [address] Mar, Irregular menstrual bleeding N92.6 and Oral contraceptive pill surveillance Z30.41 [facility] [address] [place] [id number] [place] [address] Feb, [facility] [address] [place] [id number] [place] [address] November, Sore throat J02.9 [facility] [address] [address] Feb, Routine gynecological examination Z01.419 ; Encounter for counseling regarding contraception Z30.9 and Encounter for initial prescription of contraceptive pills Z30.011 [place] [address] [address] Dec, Encounter for Depo-Provera contraception Z30.42 [place] [address] [address] Dec, [place] [address] [address] Oct, Environmental allergies Z91.09 [facility] [address] [place] [id number] [place] [address] Sep, Evaluation for contraceptive injection Z30.013 ; Absence of menses due to use of contraceptive N91.2 ; Routine screening for STI (sexually transmitted infection) Z11.3 ; BMI 37.0-37.9, adult Z68.37 ; History of headache Z87.898 and Evaluation for contraceptive implant Z30.018 [place] [address] [place] [id number] [place] [address] Jun, Encounter for immunization Z23 [place] [address] [address] Apr, Headache R51 and Obese E66.9 IMMUNIZATIONS No Known Immunizations SOCIAL HISTORY Never Assessed REASON FOR VISIT Anxiety/Went to ER 3 weeks ago with dizziness/heart palpitations/still not feeli ng "normal"-[facility]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 PLAN OF CARE Activity Details Follow Up 4 Weeks Reason: VITAL SIGNS Height 68 in 2018-03-31 Weight 261 lbs 2018-03-31 Temperature 98 degrees Fahrenheit 2018-03-31 Heart Rate 88 bpm 2018-03-31 Respiratory Rate 20 2018-03-31 BMI 39.68 kg/m2 2018-03-31 Blood pressure systolic 128 mmHg 2018-03-31 Blood pressure diastolic 70 mmHg 2018-03-31 MEDICATIONS Medication Instructions Dosage Frequency Start Date End Date Duration Status Lorazepam 1 MG Orally prn panic 1 tablet at bedtime as needed Mar, 28 days Active Aspirin 81 81 MG Orally Once a day 1 tablet 24h Active RESULTS No Results PROCEDURES Procedure Date Ordered Result Body Site ELECTROCARDIOGRAM, TRACING Mar 31, 2018 INSTRUCTIONS MEDICATIONS ADMINISTERED No Known Medications MEDICAL (GENERAL) HISTORY Type Description Date Surgical History tonsillectomy and adenoidectomy 2013 Hospitalization History Broken ankle
[2018-12-17] MEDS ORDERED: BUP/EPI 0.5% 1:200,000 (SENSORCAINE) 30 ML VIAL ONE (08:01)
--- OUTSIDE RECORDS SUMMARY | 2018-12-17 08:01 | XMS REPORT | Continuity of Care Document ---
Author Organization Unknown Address Unknown Allergies Active Description Code Type Severity Reaction Onset Reported/Identified Relationship to Patient Clinical Status Yes promethazine [id number] Drug Allergy Unknown N/A 04/19/2018 Medications There is no data. Problems Date Dx Coded Attending Type Code Diagnosis Diagnosed By 06/30/2013 ANSELMO TORRES MD Ot 474.00 CHRONIC TONSILLITIS 06/30/2013 ANSELMO TORRES MD Ot V74.8 SCREEN-BACTERIAL DIS NEC 07/07/2013 BRAYAN PUENTES APRN Ot 288.60 LEUKOCYTOSIS, UNSPECIFIED 07/07/2013 BRAYAN PUENTES APRN Ot 787.01 NAUSEA WITH VOMITING 03/10/2018 Ot 790.6 ABN BLOOD CHEMISTRY NEC 03/10/2018 ANSELMO TORRES MD Ot 474.00 CHRONIC TONSILLITIS 03/10/2018 ANSELMO TORRES MD Ot V72.84 EXAM PRE-OPERATIVE NOS 03/10/2018 BRAYAN PUENTES APRN Ot D47.3 ESSENTIAL (HEMORRHAGIC) THROMBOCYTHEMIA 03/10/2018 BRAYAN PUENTES APRN Ot R06.00 DYSPNEA, UNSPECIFIED 03/10/2018 BRAYAN PUENTES APRN Ot R20.2 PARESTHESIA OF SKIN 03/10/2018 BRAYAN PUENTES APRN Ot R53.1 WEAKNESS 03/10/2018 BRAYAN PUENTES APRN Ot Z87.448 PERSONAL HISTORY OF OTHER DISEASES OF UR 03/10/2018 BRAYAN PUENTES APRN Ot Z88.8 ALLERGY STATUS TO OTH DRUG/MEDS/BIOL SUB 04/04/2018 ANAND RAINES MD Ot D47.3 ESSENTIAL (HEMORRHAGIC) THROMBOCYTHEMIA 04/04/2018 ANAND RAINES MD Ot E66.9 OBESITY, UNSPECIFIED 04/04/2018 ANAND RAINES MD Ot F43.9 REACTION TO SEVERE STRESS, UNSPECIFIED 04/04/2018 ANAND RAINES MD Ot Z79.82 CARPET TILE LAYER (CURRENT) USE OF ASPIRIN 04/19/2018 ANAND RAINES MD Ot D47.3 ESSENTIAL (HEMORRHAGIC) THROMBOCYTHEMIA 04/19/2018 ANAND RAINES MD Ot E66.9 OBESITY, UNSPECIFIED 04/19/2018 ANAND RAINES MD Ot F43.9 REACTION TO SEVERE STRESS, UNSPECIFIED 04/19/2018 ANAND RAINES MD Ot Z79.82 PENITENTIARY (CURRENT) USE OF ASPIRIN 04/20/2018 DADA COYNE APRN Ot D47.3 ESSENTIAL (HEMORRHAGIC) THROMBOCYTHEMIA 04/20/2018 DADA COYNE APRN Ot G45.9 TRANSIENT CEREBRAL ISCHEMIC ATTACK, UNSP 05/21/2018 ANAND RAINES MD Ot D47.3 ESSENTIAL (HEMORRHAGIC) THROMBOCYTHEMIA 05/21/2018 ANAND RAINES MD Ot E66.9 OBESITY, UNSPECIFIED 05/21/2018 ANAND RAINES MD Ot F43.9 REACTION TO SEVERE STRESS, UNSPECIFIED 05/21/2018 ANAND RAINES MD Ot Z79.82 PENITENTIARY (CURRENT) USE OF ASPIRIN 05/21/2018 DADA COYNE APRN Ot D47.3 ESSENTIAL (HEMORRHAGIC) THROMBOCYTHEMIA 05/21/2018 DADA COYNE APRN Ot G45.9 TRANSIENT CEREBRAL ISCHEMIC ATTACK, UNSP 07/09/2018 ANAND RAINES MD Ot D47.3 ESSENTIAL (HEMORRHAGIC) THROMBOCYTHEMIA 07/09/2018 ANAND RAINES MD Ot E66.9 OBESITY, UNSPECIFIED 07/09/2018 ANAND RAINES MD Ot F43.9 REACTION TO SEVERE STRESS, UNSPECIFIED 07/09/2018 ANAND RAINES MD Ot Z79.82 PENITENTIARY (CURRENT) USE OF ASPIRIN 07/09/2018 DADA COYNE APRN Ot D47.3 ESSENTIAL (HEMORRHAGIC) THROMBOCYTHEMIA 07/09/2018 DADA COYNE APRN Ot G45.9 TRANSIENT CEREBRAL ISCHEMIC ATTACK, UNSP 07/20/2018 ANAND RAINES MD Ot D47.3 ESSENTIAL (HEMORRHAGIC) THROMBOCYTHEMIA 07/20/2018 ANAND RAINES MD Ot E66.9 OBESITY, UNSPECIFIED 07/20/2018 ANAND RAINES MD Ot F43.9 REACTION TO SEVERE STRESS, UNSPECIFIED 07/20/2018 ANAND RAINES MD Ot Z79.82 PENITENTIARY (CURRENT) USE OF ASPIRIN 07/22/2018 ANAND RAINES MD Ot D47.3 ESSENTIAL (HEMORRHAGIC) THROMBOCYTHEMIA 07/22/2018 ANAND RAINES MD Ot E66.9 OBESITY, UNSPECIFIED 07/22/2018 ANAND RAINES MD, Ot F43.9 REACTION TO SEVERE STRESS, UNSPECIFIED 07/22/2018 ANAND RAINES MD Ot Z79.82 PENITENTIARY (CURRENT) USE OF ASPIRIN 07/26/2018 ANAND RAINES MD Ot D47.3 ESSENTIAL (HEMORRHAGIC) THROMBOCYTHEMIA 07/26/2018 ANAND RAINES MD, Ot E66.9 OBESITY, UNSPECIFIED 07/26/2018 ANAND RAINES MD, Ot F43.9 REACTION TO SEVERE STRESS, UNSPECIFIED 07/26/2018 ANAND RAINES MD, Ot Z79.82 PENITENTIARY (CURRENT) USE OF ASPIRIN 11/05/2018 DADA COYNE APRN Ot D47.3 ESSENTIAL (HEMORRHAGIC) THROMBOCYTHEMIA 11/05/2018 DADA COYNE APRN Ot G45.9 TRANSIENT CEREBRAL ISCHEMIC ATTACK, UNSP 11/05/2018 ANAND RAINES MD Ot D47.3 ESSENTIAL (HEMORRHAGIC) THROMBOCYTHEMIA 11/05/2018 ANAND RAINES MD Ot E66.9 OBESITY, UNSPECIFIED 11/05/2018 ANAND RAINES MD, Ot F43.9 REACTION TO SEVERE STRESS, UNSPECIFIED 11/05/2018 ANAND RAINES MD Ot Z79.82 CARPET TILE LAYER (CURRENT) USE OF ASPIRIN 11/11/2018 DAGOBERTO RAYO DOI Ot R74.8 ABNORMAL LEVELS OF OTHER SERUM ENZYMES 11/15/2018 MAX RAYO DO Ot R74.8 ABNORMAL LEVELS OF OTHER SERUM ENZYMES Procedures There is no data. Results Test Result Range Capillary blood glucose measurement by glucometer (mass/volume) - 03/10/18 12:05 Capillary blood glucose measurement by glucometer (mass/volume) 103 mg/dL 70-110 Complete blood count (CBC) with automated white blood cell (WBC) differential - 03/10/18 12:06 Blood leukocytes automated count (number/volume) 13.5 10*3/uL 4.3-11.0 Blood erythrocytes automated count (number/volume) 5.01 10*6/uL 4.35-5.85 Venous blood hemoglobin measurement (mass/volume) 14.9 g/dL 11.5-16.0 Blood hematocrit (volume fraction) 44 % 35-52 Automated erythrocyte mean corpuscular volume 87 [foz_us] 80-99 Automated erythrocyte mean corpuscular hemoglobin (mass per erythrocyte) 30 pg 25-34 Automated erythrocyte mean corpuscular hemoglobin concentration measurement (mass/volume) 34 g/dL 32-36 Automated erythrocyte distribution width ratio 12.9 % 10.0- 14.5 Automated blood platelet count (count/volume) 729 10*3/uL 130-400 Automated blood platelet mean volume measurement 9.0 [foz_us] 7.4-10.4 Automated blood neutrophils/100 leukocytes 68 % 42-75 Automated blood lymphocytes/100 leukocytes 21 % 12-44 Blood monocytes/100 leukocytes 10 % 0-12 Automated blood eosinophils/100 leukocytes 1 % 0-10 Automated blood basophils/100 leukocytes 0 % 0-10 Blood neutrophils automated count (number/volume) 9.1 10*3 1.8-7.8 Blood lymphocytes automated count (number/volume) 2.8 10*3 1.0-4.0 Blood monocytes automated count (number/volume) 1.4 10*3 0.0- 1.0 Automated eosinophil count 0.2 10*3/uL 0.0-0.3 Automated blood basophil count (count/volume) 0.0 10*3/uL 0.0-0.1 Comprehensive metabolic panel - 03/10/18 12:06 Serum or plasma sodium measurement (moles/volume) 136 mmol/L 135-145 Serum or plasma potassium measurement (moles/volume) 3.4 mmol/L 3.6-5.0 Serum or plasma chloride measurement (moles/volume) 104 mmol/L 98-107 Carbon dioxide 18 mmol/L 21-32 Serum or plasma anion gap determination (moles/volume) 14 mmol/L 5-14 Serum or plasma urea nitrogen measurement (mass/volume) 8 mg/dL 7-18 Serum or plasma creatinine measurement (mass/volume) 0.73 mg/dL 0.60-1.30 Serum or plasma urea nitrogen/creatinine mass ratio 11 NRG Serum or plasma creatinine measurement with calculation of estimated glomerular filtration rate > NRG Serum or plasma glucose measurement (mass/volume) 101 mg/dL 70-105 Serum or plasma calcium measurement (mass/volume) 9.7 mg/dL 8.5-10.1 Serum or plasma total bilirubin measurement (mass/volume) 0.2 mg/dL 0.1-1.0 Serum or plasma alkaline phosphatase measurement (enzymatic activity/volume) 120 U/L 40-136 Serum or plasma aspartate aminotransferase measurement (enzymatic activity/volume) 16 U/L 5-34 Serum or plasma alanine aminotransferase measurement (enzymatic activity/volume) 19 U/L 0-55 Serum or plasma protein measurement (mass/volume) 7.7 g/dL 6.4-8.2 Serum or plasma albumin measurement (mass/volume) 4.5 g/dL 3.2-4.5 CALCIUM CORRECTED 9.3 mg/dL 8.5-10.1 THYROID STIMULATING HORMONE - 03/10/18 12:06 THYROID STIMULATING HORMONE 1.91 u[iU]/mL 0.35-4.94 Fibrin D-dimer FEU measurement in platelet poor plasma (mass/volume) - 03/10/18 12:06 Fibrin D-dimer FEU measurement in platelet poor plasma (mass/volume) 0.32 ug/mL 0.00-0.49 Tick identification panel - 03/10/18 12:06 Serum Ehrlichia chaffeensis IgG antibody detection <1:16 <1:16 Serum Ehrlichia chaffeensis IgM antibody detection <1:10 <1:10 Serum Rickettsia rickettsii IgG antibody assay (units/volume) < <1:16 [place] spotted fever panel < <1:10 Francisella tularensis antibody assay <1:20 NRG LYME AB G M 0.06 % 0.00-0.89 Interpretation of Lyme disease antibody assay Negative Negative Complete urinalysis with reflex to culture - 03/10/18 13:38 Urine color determination YELLOW NRG Urine clarity determination CLEAR NRG Urine pH measurement by test strip 6.5 5-9 Specific gravity of urine by test strip 1.010 1.016-1.022 Urine protein assay by test strip, semi-quantitative 1+ NEGATIVE Urine glucose detection by automated test strip NEGATIVE NEGATIVE Erythrocytes detection in urine sediment by light microscopy 3+ NEGATIVE Urine ketones detection by automated test strip NEGATIVE NEGATIVE Urine nitrite detection by test strip NEGATIVE NEGATIVE Urine total bilirubin detection by test strip NEGATIVE NEGATIVE Urine urobilinogen measurement by automated test strip (mass/volume) NORMAL NORMAL Urine leukocyte esterase detection by dipstick NEGATIVE NEGATIVE Automated urine sediment erythrocyte count by microscopy (number/high power field) RARE NRG Automated urine sediment leukocyte count by microscopy (number/high power field) [HPF] NRG Bacteria detection in urine sediment by light microscopy NEGATIVE NRG Squamous epithelial cells detection in urine sediment by light microscopy 0-2 NRG Crystals detection in urine sediment by light microscopy NONE NRG Casts detection in urine sediment by light microscopy NONE NRG Mucus detection in urine sediment by light microscopy NEGATIVE NRG Complete urinalysis with reflex to culture NO NRG Yeast detection in urine sediment by light microscopy FEW NRG Renal epithelial cells detection in urine sediment by light microscopy NONE NRG Urine drug screening test - 03/10/18 13:38 Urine phencyclidine detection by screening method NEGATIVE NEGATIVE Urine benzodiazepines detection by screening method NEGATIVE NEGATIVE Urine cocaine detection NEGATIVE NEGATIVE Urine amphetamines detection by screening method NEGATIVE NEGATIVE Urine methamphetamine detection by screening method NEGATIVE NEGATIVE Urine cannabinoids detection by screening method NEGATIVE NEGATIVE Urine opiates detection by screening method NEGATIVE NEGATIVE Urine barbiturates detection NEGATIVE NEGATIVE Screening urine tricyclic antidepressants detection NEGATIVE NEGATIVE Urine methadone detection by screening method NEGATIVE NEGATIVE Urine oxycodone detection NEGATIVE NEGATIVE Urine propoxyphene detection NEGATIVE NEGATIVE Complete blood count (CBC) with automated white blood cell (WBC) differential - 11/05/18 08:30 Blood leukocytes automated count (number/volume) 9.0 10*3/uL 4.3-11.0 Blood erythrocytes automated count (number/volume) 4.33 10*6/uL 4.35-5.85 Venous blood hemoglobin measurement (mass/volume) 13.1 g/dL 11.5-16.0 Blood hematocrit (volume fraction) 39 % 35-52 Automated erythrocyte mean corpuscular volume 91 [foz_us] 80-99 Automated erythrocyte mean corpuscular hemoglobin (mass per erythrocyte) 30 pg 25-34 Automated erythrocyte mean corpuscular hemoglobin concentration measurement (mass/volume) 33 g/dL 32-36 Automated erythrocyte distribution width ratio 12.3 % 10.0- 14.5 Automated blood platelet count (count/volume) 406 10*3/uL 130-400 Automated blood platelet mean volume measurement 9.2 [foz_us] 7.4-10.4 Automated blood neutrophils/100 leukocytes 64 % 42-75 Automated blood lymphocytes/100 leukocytes 25 % 12-44 Blood monocytes/100 leukocytes 10 % 0-12 Automated blood eosinophils/100 leukocytes 1 % 0-10 Automated blood basophils/100 leukocytes 0 % 0-10 Blood neutrophils automated count (number/volume) 5.7 10*3 1.8-7.8 Blood lymphocytes automated count (number/volume) 2.3 10*3 1.0-4.0 Blood monocytes automated count (number/volume) 0.9 10*3 0.0- 1.0 Automated eosinophil count 0.1 10*3/uL 0.0-0.3 Automated blood basophil count (count/volume) 0.0 10*3/uL 0.0-0.1 Comprehensive metabolic panel - 11/05/18 08:30 Serum or plasma sodium measurement (moles/volume) 138 mmol/L 135-145 Serum or plasma potassium measurement (moles/volume) 4.0 mmol/L 3.6-5.0 Serum or plasma chloride measurement (moles/volume) 105 mmol/L 98-107 Carbon dioxide 24 mmol/L 21-32 Serum or plasma anion gap determination (moles/volume) 9 mmol/L 5-14 Serum or plasma urea nitrogen measurement (mass/volume) 12 mg/dL 7-18 Serum or plasma creatinine measurement (mass/volume) 0.73 mg/dL 0.60-1.30 Serum or plasma urea nitrogen/creatinine mass ratio 16 NRG Serum or plasma creatinine measurement with calculation of estimated glomerular filtration rate > NRG Serum or plasma glucose measurement (mass/volume) 92 mg/dL 70-105 Serum or plasma calcium measurement (mass/volume) 9.6 mg/dL 8.5-10.1 Serum or plasma total bilirubin measurement (mass/volume) 0.3 mg/dL 0.1-1.0 Serum or plasma alkaline phosphatase measurement (enzymatic activity/volume) 125 U/L 40-136 Serum or plasma aspartate aminotransferase measurement (enzymatic activity/volume) 19 U/L 5-34 Serum or plasma alanine aminotransferase measurement (enzymatic activity/volume) 30 U/L 0-55 Serum or plasma protein measurement (mass/volume) 7.2 g/dL 6.4-8.2 Serum or plasma albumin measurement (mass/volume) 4.3 g/dL 3.2-4.5 CALCIUM CORRECTED 9.4 mg/dL 8.5-10.1 Serum or plasma amylase measurement (enzymatic activity/volume) - 11/05/18 08:30 Serum or plasma amylase measurement (enzymatic activity/volume) 40 U/L 25-125 Lipase - 11/05/18 08:30 Lipase 25 U/L 8-78 Encounters ACCT No. Visit Date/Time Discharge Status Pt. Type Provider Facility Loc./Unit Complaint [id number] 12/13/2018 09:54:00 12/13/2018 23:59:59 CLS Outpatient RAYO DO, MAX [facility] CARD RUQ PAIN [id number] 11/09/2018 07:59:00 11/09/2018 23:59:59 CLS Outpatient RAYO DO, MAX [facility] RAD ABNORMAL LIVER ENZYMES [id number] 11/05/2018 08:23:00 11/05/2018 23:59:59 CLS Outpatient PERRI KUNZ MAX [facility] LAB GENERALIZED ABD CRAMPING [id number] 07/21/2018 00:10:00 07/21/2018 23:59:59 CLS Preadmit ANAND RAINES MD [facility] ONC [id number] 04/21/2018 15:00:00 07/20/2018 00:01:00 DIS Outpatient ANAND RAINES MD [facility] ONC [id number] 04/19/2018 10:54:00 04/19/2018 23:59:59 CLS Outpatient DADA COYNE APRN [facility] RAD NONINTRACTABLE EPISODIC HEADACHE [id number] 03/16/2018 09:25:00 04/04/2018 00:01:00 DIS Outpatient ANAND RAINES MD [facility] ONC [id number] 03/10/2018 11:55:00 03/10/2018 15:00:00 DIS Emergency BRAYAN PUENTES APRN [facility] ER WEAK/FEELS LIKE GOING TO PASS OUT [id number] 07/07/2013 12:16:00 07/07/2013 16:45:00 DIS Emergency BRAYAN PUENTES APRN [facility] ER VOMITING [id number] 06/30/2013 07:37:00 06/30/2013 13:10:00 DIS Outpatient ANSELMO TORRES MD [facility] OTITIS MEDIA [id number] 06/22/2013 08:07:00 06/22/2013 23:59:59 CLS Outpatient ANSELMO TORRES MD [facility] PREOP OTITIS MEDIA [id number] 12/17/2018 08:45:00 PEN Preadmit LAZARA STANTON MD [facility] CHRONIC CHOLECYSTITIS [id number] 10/16/2012 10:23:00 Document Registration
[2018-12-17] MEDS: LACTATED RINGERS 1,000 ML IV PRN ×2 (08:20→09:55)
--- NOTE | 2018-12-17 08:27 | Progress Note-Pre Operative ---
Pre-Operative Progress Note H&P Reviewed The H&P was reviewed, patient examined and no changes noted. Date Seen by Provider: Dec 17, 2018 Time Seen by Provider: 08:25 Date H&P Reviewed: Dec 17, 2018 Time H&P Reviewed: 08:20 Pre-Operative Diagnosis: Symptomatic Chronic acalculous cholecystitis IZABEL MONTANA APRN Dec 17, 2018 08:27
[2018-12-17] MEDS ORDERED: MIDAZOLAM 2 MG/2 ML (VERSED) VIAL IV ONE (08:30)
[2018-12-17] MEDS ORDERED: morphine INJ 10 MG/ML 1ML (SYR OR VIAL) IVP PRN (08:30)
[2018-12-17] MEDS ORDERED: ACETAMINOPHEN 325 MG TABLET PO PRN (08:30)
[2018-12-17] MEDS ORDERED: ONDANSETRON 4 MG/2 ML (SDV) Z0FRAN IVP PRN ×2 (08:30→10:15)
[2018-12-17] MEDS ORDERED: HYDROcodone/APAP 5 MG/325 MG (LORTAB) TAB PO ONE (08:30)
--- NOTE | 2018-12-17 08:30 | Discharge Inst-Surgical ---
D/C Lap Instructions-KIDO New, Converted, or Re-Newed RX: RX on Chart Follow Up Appt in 2 weeks Activity as tolerated No driving for 24 hours No [address] while on pain medications Incentive Spirometry use every 2 hours while awake Regular Diet Symptoms to Report: Fever over 101 degree F, Nausea/Vomiting Infection Signs and Symptoms to report: Increased redness, Foul odor of wound, Increased drainage Bathing instructions: May shower Operative Area Clean/Dry; Keep incision clean/dry If any problems/questions: Contact your physician or go to Emergency Room IZABEL MONTANA APRN Dec 17, 2018 08:30
[2018-12-17 08:31] LABS: BASOPHILS % (AUTO) 0 % (0-10); EOSINOPHILS # (AUTO) 0.1 10^3/uL (0.0-0.3); EOSINOPHILS % (AUTO) 1 % (0-10); HEMATOCRIT 40 % (35-52); HEMOGLOBIN 13.7 G/DL (11.5-16.0); LYMPHOCYTES # (AUTO) 1.3 X 10^3 (1.0-4.0); LYMPHOCYTES % (AUTO) 22 % (12-44); MEAN CORPUSCULAR HEMOGLOBIN 30 PG (25-34); MEAN CORPUSCULAR HGB CONC 34 G/DL (32-36); MEAN CORPUSCULAR VOLUME 89 FL (80-99); MEAN PLATELET VOLUME 9.2 FL (7.4-10.4); MONOCYTES # (AUTO) 0.9 X 10^3 (0.0-1.0); MONOCYTES % (AUTO) 15 % (0-12); NEUTROPHILS # (AUTO) 3.6 X 10^3 (1.8-7.8); NEUTROPHILS % (AUTO) 62 % (42-75); PLATELET COUNT 460 10^3/uL (130-400); RED CELL DISTRIBUTION WIDTH 12.6 % (10.0-14.5); WHITE BLOOD COUNT 5.8 10^3/uL (4.3-11.0)
[2018-12-17] MEDS ORDERED: HYDR-3816 PO ×2 (08:36→08:40)
[2018-12-17] MEDS ORDERED: CIPR500T4 PO (08:36)
[2018-12-17] MEDS ORDERED: METR500T PO (08:36)
[2018-12-17] MEDS ORDERED: SEVOFLURANE (ULTANE) 15 ML INHAL SOLN ONE (08:39)
[2018-12-17] MEDS ORDERED: NEOSTIGMINE 1 MG/ML 5 ML SYRINGE ONE (08:39)
[2018-12-17] MEDS ORDERED: DEXAMETHASONE 10 MG/ML (DECADRON) 1 ML VIAL ONE (08:39)
[2018-12-17] MEDS ORDERED: ROCURONIUM 10 MG/ML 5 ML SYRINGE IV ONE (08:39)
[2018-12-17] MEDS ORDERED: LIDOCAINE PF 2% 5 ML (XYLOCAINE) VIAL ONE (08:39)
[2018-12-17] MEDS ORDERED: GLYCOPYRROLATE 0.2 MG/ML (ROBINUL) 2 ML VIAL ONE (08:39)
[2018-12-17] MEDS ORDERED: fentaNYL INJECTION 100 MCG/2 ML AMP ONE ×2 (08:39→09:19)
[2018-12-17] MEDS ORDERED: ONDANSETRON 4 MG/2 ML (SDV) Z0FRAN ONE (08:39)
[2018-12-17] MEDS ORDERED: proPOfol 200 MG/20 ML (DIPRIVAN) VIAL IV ONE (08:39)
[2018-12-17] MEDS ORDERED: MIDAZOLAM 2 MG/2 ML (VERSED) VIAL ONE (08:40)
[2018-12-17] MEDS ORDERED: MEPERIDINE (DEMEROL) INJ 50 MG/ML IVP ONE (10:15)
[2018-12-17] MEDS ORDERED: fentaNYL INJECTION 100 MCG/2 ML AMP IVP ONE (10:15)
[2018-12-17] MEDS ORDERED: morphine INJ 10 MG/ML 1ML (SYR OR VIAL) IVP ONE (10:15)
--- NOTE | 2018-12-17 10:30 | Progress Note-Post Operative ---
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
[2018-12-17] MEDS ORDERED: HYDROcodone/APAP 5 MG/325 MG (LORTAB) TAB ONE (11:50)
[2018-12-17] MEDS ORDERED: ONDN4T PO (12:42)
--- NOTE | 2018-12-17 14:33 | Anesthesia-General Post-Op ---
General Patient Condition Mental Status/LOC: Same as Preop Cardiovascular: Satisfactory Nausea/Vomiting: Absent Respiratory: Satisfactory Pain: Controlled Complications: Absent Post Op Complications Complications None Follow Up Care/Instructions Patient Instructions None needed. Anesthesia/Patient Condition Patient Condition Patient was seen after the procedure and she was doing well, C/O some pain which is to be expected, stable vital signs, no apparent adverse anesthesia problems. YASMINE FLORES DO Dec 17, 2018 14:33
--- NOTE | 2018-12-17 16:02 | OPERATIVE REPORT ---
DATE OF SERVICE: 12/17/2018 ATTENDING PRIMARY CARE PHYSICIAN: Dr. Valles. PREOPERATIVE DIAGNOSIS: Symptomatic chronic acalculous cholecystitis. POSTOPERATIVE DIAGNOSIS: Symptomatic chronic calculous cholecystitis. PROCEDURE: Laparoscopic cholecystectomy. SURGEON: Lazara Stanton MD ANESTHESIA: General endotracheal. ESTIMATED BLOOD LOSS: Minimal. FINDINGS: Slight gallbladder wall thickening with multiple small gallstones. DISPOSITION: The patient tolerated the procedure well. INDICATIONS: The patient is a 23-year-old female, who has had issues with pain in the right upper abdominal quadrant with radiation towards the back since 04/2018. Upon further questioning, she reports that she may have had lesser episodes of this type of pain; however, to a lesser degree. This did progressively worsen over time and became associated with nausea and vomiting as well. An ultrasound was performed, which did not show any gallstones; however, HIDA scan was performed, which did show delayed contrast emptying of the gallbladder consistent with a chronic cholecystitis. DESCRIPTION OF PROCEDURE: The patient was brought to the operating room, laid supine on the table. After adequate IV pain and sedative medications and general endotracheal intubation, the abdomen was prepped and draped in standard surgical fashion. An area in the left upper abdominal quadrant was then anesthetized with 0.5% Marcaine with epinephrine and a transverse skin incision made using a 15 blade. An 0 silk suture was applied to the medial aspect of the incision for retraction and a Veress needle inserted with a low opening pressure of 0 mmHg. The abdomen was then insufflated to 15 mmHg pressure. The Veress needle removed and a 5 mm Xcel trocar placed followed by a 5 mm 45 degree angle laparoscope visualizing the peritoneal cavity. A 4-quadrant abdominal exploration was performed. There was mild hepatomegaly. There was mild gallbladder wall thickening. The remainder of the omentum, small bowel, stomach, liver appeared normal. Under direct visualization, we then proceed to place a supraumbilical 10 mm port after the skin and peritoneal lining were anesthetized using 0.5% Marcaine with epinephrine and a transverse skin incision made using a 15 blade. In a similar manner, a right upper abdominal quadrant 5 mm port was placed. The patient was then placed in reverse Trendelenburg position as well as plane right side up, left side down. The hepatoduodenal ligament was then opened using blunt dissection as well as electrocautery using the hook instrument. The entire critical view of safety was identified including the triangle of Calot as well as the cystic duct and artery as the only two structures going into the gallbladder as well as the cystic plate behind the proximal gallbladder. A timeout was then taken and the cystic duct and artery were then clipped proximally, distally and cut with EndoShears. The gallbladder was then dissected off the liver bed using cautery on the hook instrument with visualization of good hemostasis as well as no leaking ducts of Luschka. The gallbladder was removed through the 10 mm port site using an EndoCatch bag. The 10 mm port site fascia and peritoneum were then closed under direct visualization using a Kolton-Ani device and 0 Vicryl suture. The abdomen was then desufflated and remaining ports removed. All skin incisions were closed using 4-0 Monocryl running subcuticular sutures. Wounds were then cleaned and covered with Dermabond. The patient tolerated the procedure well. We will start IV normal pain medication as well as a clear liquid diet. Once she is tolerating clears, has good pain control with oral pain medications, ambulating well, we will discharge her home. She will be instructed to do no heavy lifting or exertion for the next two weeks. Job ID: [id number] DocumentID: [id number] Dictated Date: 12/17/2018 10:36:12 Director Of Compensation Date: 12/17/2018 16:01:53 Dictated By: LAZARA STANTON MD
== END 2018-12-17 13:30 | disposition home or self-care (01) ==
LOC: SDC 07:35
PROVIDERS: ATTEND Surgery
DX: K80.10 Calculus of gallbladder with chronic cholecystitis without obstruction (principal); K21.9 Gastro-esophageal reflux disease without esophagitis; Z79.82 Long term (current) use of aspirin
CPT/HCPCS: 36415; 84703; 85025; 87081

== ENCOUNTER → 2021-07-10 | Outpatient (CLI) | payer BC, OTHER ==
[~2021-07-10] MED LIST changes: +CIPR500T5 PO; +CYCL10TA25 PO; -CYCL10TA9 PO; +HYDR-34 PO; +METR500T PO; +ONDN4T PO; +RANI-613 PO; -RANI150T46 PO
--- NOTE | 2021-07-10 10:23 | Diagnostic Imaging Report ---
INDICATION: Thrombocytosis PROCEDURE: Ultrasound abdomen complete. TECHNIQUE: Multiple real-time grayscale images were obtained of the abdomen in various projections. The previous hepatic ultrasound exam of 11/09/2018 failed to show any acute abnormality of the gallbladder. In the interval since the prior exam the patient has undergone a cholecystectomy. The common bile duct is not dilated. The liver does not appear to be enlarged. There is no focal mass involving the liver. The biliary tree is not abnormally dilated. Spectral and color-flow imaging of the portal vein shows no sign of an acute abnormality. The spleen, kidneys, aorta and inferior vena cava are unremarkable for an acute abnormality. The pancreas is obscured by bowel gas. IMPRESSION: 1. In the interval since the prior exam the patient has undergone a cholecystectomy. There is no acute abnormality of the right upper quadrant identified. 2. The liver does not appear to be enlarged and there is no focal mass involving the liver. Dictated by: Dictated on workstation # [id number]
== END ==
LOC: RAD 08:45
PROVIDERS: ATTEND Internal Medicine Hematology & Oncology
DX: D75.839 Thrombocytosis, unspecified (principal); Z90.49 Acquired absence of other specified parts of digestive tract
CPT/HCPCS: 76700

== ENCOUNTER 2021-09-27 15:05 | Emergency (ER) | payer BC ==
[~2021-09-27] VITALS: Ht 170.2 cm; Wt 108.8 kg
--- NOTE | 2021-09-27 17:23 | ED Neurological Problem ---
General Chief Complaint: Neurological Problems Stated Complaint: NUMBNESS/MUSCLES TWITCHING IN FACE X 1 WK Nursing Triage Note: PT AMB TO TRIAGE WITH COMPLAINT OF NUMBNESS/TINGLING OF RIGHT SIDE OF FACE THAT RADIATES INTO JAW. STATES SHE STARTED INITIALLY WITH SYMPTOMS IN [employer] BUT WITH IN THE LAST FEW WEEKS THEY HAVE WORSENED. STATES SHE HAS AN APPT WITH NEUROLOGIST IN A MONTH. RECENTLY STARTED ON CYMBALTA. Source: patient Exam Limitations: no limitations (TAMMY TURCIOS MD) History of Present Illness Date Seen by Provider: Sep 27, 2021 Time Seen by Provider: 16:56 Initial Comments Here with a variety of symptoms that seem to rib wall around numbness and tingling in different parts of her body. This has been going on since April. States it started in her left leg and then went to the right and then moved up her body. Now she is having jaw tightness and tingling especially on the left. This all started after she had Covid in February. She got Covid 2 weeks after she had her vaccination. Recently was started on Cymbalta to try to help with symptoms. Her provider at [facility] does not know what else to do at this point. She does have appointment with neurologist in about a month in [place]. Denies nausea, vomiting, fever, chills or weakness. Does complain of some head pressure and left jaw aching and stiffness with reported difficulty swallowing due to the stiffness. She does admit that she has been under increased stress related to this. She still works at [employer] and functions daily. Last menstrual period 2 days ago. Timing/Duration: waxing and waning, other (6 months) Associated Symptoms: No confusion, No fatigue, No fever/chills; muscle spasms; No nausea/vomiting, No numbness in legs/feet; paresthesia; No ringing in ears, No slurred speech, No trouble walking, No vision changes, No weakness (TAMMY TURCIOS MD) Allergies and Home Medications Allergies Coded Allergies: phenylephrine (Verified Allergy, Severe, ANAPHYLAXIS, 12/16/18) Patient Home Medication List Home Medication List Reviewed: Yes (TAMMY TURCIOS MD) Aspirin (Aspirin) 81 Mg Tab.chew, 81 MG PO DAILY, (Reported) Entered as Reported by: DADA HANKS on 12/16/18 1233 Ciprofloxacin HCl (Ciprofloxacin HCl) 500 Mg Tablet, 500 MG PO BID, (Reported) Entered as Reported by: THOMAS MCKENZIE on 12/17/18 0836 Cyclobenzaprine HCl (Cyclobenzaprine HCl) 10 Mg Tablet, 10 MG PO PRN, (Reported) Entered as Reported by: DADA HANKS on 12/16/18 1233 Hydrocodone Bit/Acetaminophen (HYDROcodone/APAP 7.5/325 TAB) 1 Each Tablet, 1 TAB PO Q6H PRN for PAIN-MODERATE, (Reported) Entered as Reported by: THOMAS MCKENZIE on 12/17/18 0836 Hydrocodone Bit/Acetaminophen (HYDROcodone/APAP 7.5/325 TAB) 1 Each Tablet, 1-2 TAB PO Q4H Prescribed by: IZABEL MONTANA on 12/17/18 0840 Metronidazole (Flagyl) 500 Mg Tablet, 500 MG PO BID, (Reported) Entered as Reported by: THOMAS MCKENZIE on 12/17/18 0836 Ondansetron HCl (Zofran) 4 Mg Tab, 4 MG PO Q6H PRN for NAUSEA/VOMITING Prescribed by: THOMAS MCKENZIE on 12/17/18 1242 Ranitidine HCl (Zantac) 150 Mg Tablet, 150 MG PO DAILY, (Reported) Entered as Reported by: DADA HANKS on 12/16/18 1233 Review of Systems Review of Systems Constitutional: see HPI; No chills, No fever Eyes: No Symptoms Reported Ears, Nose, Mouth, Throat: see HPI, mouth pain, throat pain Respiratory: No cough, No short of breath Musculoskeletal: muscle pain, muscle stiffness Psychiatric/Neurological: Numbness (TAMMY TURCIOS MD) All Other Systems Reviewed Negative Unless Noted: Yes (TAMMY TURCIOS MD) Past Hqtmojb-Negkpt-Wwwepw Hx Patient Social History Tobacco Use?: No Use of E-Cig and/or Vaping dev: No Substance use?: No Alcohol Use?: No Pt feels they are or have been: No (TAMMY TURCIOS MD) Seasonal Allergies Seasonal Allergies: No (TAMMY TURCIOS MD) Past Medical History Surgeries: Yes Tonsillectomy Respiratory: No Cardiac: No Neurological: No Reproductive Disorders: Yes (PCOS) Female Reproductive Disorders: Denies Sexually Transmitted Disease: No HIV/AIDS: No Genitourinary: No Gastrointestinal: Yes Gastroesophageal Reflux, Chronic Diarrhea, Gall Bladder Disease Musculoskeletal: No Endocrine: No HEENT: Yes (GLASSES) Loss of Vision: Denies Hearing Impairment: Denies Cancer: No Psychosocial: Yes Anxiety Integumentary: No Blood Disorders: Yes (HIGH RED BLOOD CELLS) Adverse Reaction/Blood Tranf: No (N/A) (TAMMY TURCIOS MD) Family Medical History Reviewed Nursing Family Hx (TAMMY TURCIOS MD) Physical Exam Vital Signs Vital Signs - First Documented 09/27/21 15:30 Pulse 110 Resp 20 B/P (MAP) 145/104 (118) Pulse Ox 98 O2 Delivery Room Air (BRAYAN HUERTA APRN) Vital Signs Capillary Refill : Less Than 3 Seconds (TAMMY TURCIOS MD) Height, Weight, BMI Height: 5'11.00" Weight: 208lbs. 0.0oz. [id number]; 37.00 BMI Method:Estimated General Appearance: WD/WN, no apparent distress HEENT: PERRL/EOMI, TMs normal, pharynx normal Neck: full range of motion, supple, normal inspection Respiratory: lungs clear, normal breath sounds Cardiovascular: regular rate, rhythm, no murmur, tachycardia Gastrointestinal: non tender, soft Neurologic/Psychiatric: alert, normal mood/affect, oriented x 3 Crainal Nerves: normal hearing, normal speech, PERRL, facial paresthesias (Lower face and jaw bilateral); No facial weakness Coordination/Gait: normal gait Motor/Sensory: no motor deficit Skin: normal color, warm/dry (TAMMY TURCIOS MD) Progress/Results/Core Measures Results/Orders Lab Results Laboratory Tests Test 09/27/21 17:35 Range/Units White Blood Count 12.1 H 4.3-11.0 10^3/uL Red Blood Count 4.56 3.80-5.11 10^6/uL Hemoglobin 13.6 11.5-16.0 g/dL Hematocrit 41 35-52 % Mean Corpuscular Volume 89 80-99 fL Mean Corpuscular Hemoglobin 30 25-34 pg Mean Corpuscular Hemoglobin Concent 34 32-36 g/dL Red Cell Distribution Width 12.2 10.0-14.5 % Platelet Count 546 H 130-400 10^3/uL Mean Platelet Volume 9.4 9.0-12.2 fL Immature Granulocyte % (Auto) 0 % Neutrophils (%) (Auto) 72 42-75 % Lymphocytes (%) (Auto) 17 12-44 % Monocytes (%) (Auto) 10 0-12 % Eosinophils (%) (Auto) 1 0-10 % Basophils (%) (Auto) 0 0-10 % Neutrophils # (Auto) 8.7 H 1.8-7.8 10^3/uL Lymphocytes # (Auto) 2.0 1.0-4.0 10^3/uL Monocytes # (Auto) 1.2 H 0.0-1.0 10^3/uL Eosinophils # (Auto) 0.1 0.0-0.3 10^3/uL Basophils # (Auto) 0.0 0.0-0.1 10^3/uL Immature Granulocyte # (Auto) 0.1 0.0-0.1 10^3/uL D-Dimer <= 0.27 0.00-0.49 UG/ML Sodium Level 139 135-145 MMOL/L Potassium Level 3.9 3.6-5.0 MMOL/L Chloride Level 106 98-107 MMOL/L Carbon Dioxide Level 22 21-32 MMOL/L Anion Gap 11 5-14 MMOL/L Blood Urea Nitrogen 10 7-18 MG/DL Creatinine 0.71 0.60-1.30 MG/DL Estimat Glomerular Filtration Rate 122 BUN/Creatinine Ratio 14 Glucose Level 87 70-105 MG/DL Calcium Level 9.7 8.5-10.1 MG/DL Corrected Calcium 9.3 8.5-10.1 MG/DL Magnesium Level 2.3 1.6-2.4 MG/DL Total Bilirubin 0.3 0.1-1.0 MG/DL Aspartate Amino Transf (AST/SGOT) 13 5-34 U/L Alanine Aminotransferase (ALT/SGPT) 17 0-55 U/L Alkaline Phosphatase 91 40-136 U/L C-Reactive Protein High Sensitivity 0.38 0.00-0.50 MG/DL Total Protein 7.3 6.4-8.2 GM/DL Albumin 4.5 3.2-4.5 GM/DL TSH [place] Testing 1.29 0.35-4.94 UIU/ML Serum Test, Qualitative NEGATIVE NEGATIVE (BRAYAN HUERTA APRN) Vital Signs/I&O 09/27/21 15:30 Pulse 110 Resp 20 B/P (MAP) 145/104 (118) Pulse Ox 98 O2 Delivery Room Air (BRAYAN HUERTA APRN) Blood Pressure Mean: 118 Progress Progress Note : Progress Note Seen and evaluated. IV and labs ordered. We did discuss options for CT scan versus not. Risk-benefit at this point would lean away from CT scan and this was discussed. MRI in the future may be appropriate depending on symptoms and discussion with neurology. She does admit to anxiety and I believe this is a component. She also admits to jaw clenching. This may be more related to TMJ of the face secondary to anxiety of health. Monitor patient. 180: Care transferred to Brayan Huerta APRN pending labs. We did check out with patient present and answered all questions at that time. (TAMMY TURCIOS MD) Departure Impression Primary Impression: TMJ syndrome Disposition: 01 HOME, SELF-CARE Condition: Stable Departure-Patient Inst. Decision time for Depature: 18:52 (BRAYAN HUERTA APRN) Referrals: [facility] [place]) Primary Care Physician MIKALA JALLOH APRN (Family) Primary Care Physician Patient Instructions: Temporomandibular Joint (TMJ) Disorders (DC) Add. Discharge Instructions: 1. Use the anxiety medication as needed. Return to ER for any concerns. Follow-up with neurology as scheduled. All discharge instructions reviewed with patient and/or family. Voiced understanding. Scripts Lorazepam (Ativan) 0.5 Mg Tablet 0.5 MG PO DAILY PRN for ANXIETY for 7 Days, #10 TAB Prov: BRAYAN HUERTA APRN 09/27/21 TAMMY TURCIOS MD Sep 27, 2021 17:23 BRAYAN HUERTA APRN Sep 27, 2021 18:54
[2021-09-27 17:46] LABS: BASOPHILS % (AUTO) 0 % (0-10); EOSINOPHILS # (AUTO) 0.1 10^3/uL (0.0-0.3); EOSINOPHILS % (AUTO) 1 % (0-10); HEMATOCRIT 41 % (35-52); HEMOGLOBIN 13.6 g/dL (11.5-16.0); LYMPHOCYTES % (AUTO) 17 % (12-44); MEAN CORPUSCULAR HEMOGLOBIN 30 pg (25-34); MEAN CORPUSCULAR HGB CONC 34 g/dL (32-36); MEAN CORPUSCULAR VOLUME 89 fL (80-99); MEAN PLATELET VOLUME 9.4 fL (9.0-12.2); MONOCYTES # (AUTO) 1.2 10^3/uL (0.0-1.0); MONOCYTES % (AUTO) 10 % (0-12); NEUTROPHILS # (AUTO) 8.7 10^3/uL (1.8-7.8); NEUTROPHILS % (AUTO) 72 % (42-75); PLATELET COUNT 546 10^3/uL (130-400); WHITE BLOOD COUNT 12.1 10^3/uL (4.3-11.0)
[2021-09-27 17:54] LABS: ALBUMIN 4.5 GM/DL (3.2-4.5); POTASSIUM 3.9 MMOL/L (3.6-5.0)
[2021-09-27 17:56] LABS: CALCIUM 9.7 MG/DL (8.5-10.1)
[2021-09-27 17:57] LABS: TOTAL PROTEIN 7.3 GM/DL (6.4-8.2)
[2021-09-27 17:59] LABS: BILIRUBIN,TOTAL 0.3 MG/DL (0.1-1.0)
[2021-09-27 18:00] LABS: CREATININE SERUM 0.71 MG/DL (0.60-1.30)
[2021-09-27 18:03] LABS: MAGNESIUM 2.3 MG/DL (1.6-2.4)
[2021-09-27 18:24] LABS: TSH (THYROID ANALYZER) 1.29 UIU/ML (0.35-4.94)
[2021-09-27] MEDS ORDERED: LORA-404 PO (18:53)
[2021-09-27 19:00] VITALS: BP 145/104
== END 2021-09-27 19:03 | disposition home or self-care (01) ==
LOC: EDUNIT# 15:05 → ER 15:07
DX: M26.603 Bilateral temporomandibular joint disorder, unspecified (principal); Z86.16 Personal history of COVID-19; Z32.02 Encounter for pregnancy test, result negative
CPT/HCPCS: 36415; 80053; 83735; 84443; 84703; 85025; 85379; 86141

== ENCOUNTER 2021-12-18 09:04 | Outpatient (CLI) | payer BC ==
[~2021-12-18] VITALS: Ht 170.2 cm; Wt 110.5 kg
[~2021-12-18 09:04] MED LIST changes: +LORA-404 PO
[2021-12-18] MEDS ORDERED: CNC1KV IM (14:35)
== END 2021-12-18 14:37 | disposition home or self-care (01) ==
LOC: PREOP 09:04
PROVIDERS: ATTEND Surgery
DX: Z01.818 Encounter for other preprocedural examination (principal)

== ENCOUNTER 2021-12-25 12:28 | Day surgery (SDC) | payer BC ==
[~2021-12-25] VITALS: Ht 170 cm; Wt 110.5 kg
[~2021-12-25 12:28] MED LIST changes: +CNC1KV IM
[2021-12-25] MEDS ORDERED: LACTATED RINGERS 1,000 ML IV ONE (12:43)
[2021-12-25] MEDS ORDERED: LACTATED RINGERS 1,000 ML IV STA (12:46)
[2021-12-25] MEDS ORDERED: PANT40TA2 PO (12:48)
--- NOTE | 2021-12-25 12:48 | Progress Note-Pre Operative ---
Pre-Operative Progress Note H&P Reviewed The H&P was reviewed, patient examined and no changes noted. Date Seen by Provider: Dec 25, 2021 Time Seen by Provider: 12:30 Date H&P Reviewed: Dec 25, 2021 Time H&P Reviewed: 12:30 Pre-Operative Diagnosis: dysphagia/GERD LAZARA STANTON MD Dec 25, 2021 12:48
--- NOTE | 2021-12-25 12:49 | Discharge Inst-Surgical ---
D/C Lap Instructions-KIDO New, Converted, or Re-Newed RX: RX on Chart Follow Up Activity as tolerated High Fiber Diet 25g or more per day Avoid Alcohol, Caffeine, Spicy [place] and Acid foods. Drink 64 fluid oz or more of fluids per day. Symptoms to Report: Fever over 101 degree F, Nausea/Vomiting If any problems/questions: Contact your physician or go to Emergency Room LAZARA STANTON MD Dec 25, 2021 12:49
[2021-12-25 13:00] VITALS: BP 141/94
[2021-12-25] MEDS ORDERED: ONDANSETRON 4 MG (ZOFRAN) ORAL DISSOLVE TAB PO PRN (13:00)
[2021-12-25] MEDS ORDERED: LIDOCAINE JELLY 2% 6 ML SYRINGE MM PRN (13:00)
[2021-12-25] MEDS ORDERED: ONDANSETRON 4 MG/2 ML (SDV) Z0FRAN IVP PRN (13:00)
[2021-12-25] MEDS ORDERED: HURRICAINE EXT TUBE (BENZOCAINE) XX PRN (13:00)
[2021-12-25] MEDS ORDERED: PROPOFOL INJECTION 50 ML IV ONE (13:50)
[2021-12-25 14:58] VITALS: BP 130/74
[2021-12-25 15:00] VITALS: BP 136/80
--- NOTE | 2021-12-25 15:07 | Anesthesia-General Post-Op ---
MAC Patient Condition Mental Status/LOC: Same as Preop Cardiovascular: Satisfactory Nausea/Vomiting: Absent Respiratory: Satisfactory Pain: Controlled Complications: Absent Post Op Complications Complications None Follow Up Care/Instructions Patient Instructions None needed. Anesthesiology Discharge Order Discharge Order Patient is doing well, no complaints, stable vital signs, no apparent adverse anesthesia problems. No complications reported per nursing. SUJATA REID CRNA Dec 25, 2021 15:07
[2021-12-25 15:30] VITALS: BP 127/97
--- NOTE | 2021-12-25 16:33 | Progress Note-Post Operative ---
Post-Operative Progess Note Surgeon (s)/Intelligence Officer (s) Surgeon LAZARA STANTON MD Intelligence Officer: none Pre-Operative Diagnosis dysphagia/GERD Post-Operative Diagnosis reflux esophagitis(C), dist esoph stricture, moderate gastritis. Procedure & Operative Findings Date of Procedure 12/25/21 Procedure Performed/Findings EGD with bx and balloon dilatation. Anesthesia Type mac Estimated Blood Loss Estimated blood loss (mL): minimal Specimens/Packing Specimens Removed ge jxn, antrum LAZARA STANTON MD Dec 25, 2021 16:33
--- NOTE | 2021-12-26 00:33 | OPERATIVE REPORT ---
DATE OF SERVICE: 12/25/2021 ADMITTING PRIMARY CARE PHYSICIAN: Dr. Valles. PREOPERATIVE DIAGNOSES: Dysphagia, gastroesophageal reflux disease. POSTOPERATIVE DIAGNOSES: Reflux esophagitis, [place] grade C with a mild distal esophageal stricture, small hiatal hernia approximately 2.5 cm in size, moderate gastritis. PROCEDURE: EGD with biopsy and balloon dilatation. SURGEON: Lazara Stanton MD. ANESTHESIA: Monitored anesthesia care. ESTIMATED BLOOD LOSS: Minimal. FINDINGS: Reflux esophagitis, [place] grade C with a mild distal esophageal stricture, small hiatal hernia approximately 2.5 cm in size, moderate gastritis. DISPOSITION: The patient tolerated the procedure well. INDICATIONS: The patient is a 26-year-old female who is known to us. She had issues with nausea and vomiting and underwent a ultrasound, which did not show any stones and a HIDA scan did show delayed contrast emptying consistent with chronic calculous cholecystitis and she underwent a laparoscopic cholecystectomy on 12/17/2018. She states in the past 4 months, she has had dysphagia with difficulty swallowing and she has also had a longstanding history of gastroesophageal reflux disease. She also had mentioned that she was diagnosed with a gastroparesis many years ago; however, it does not appear that she is being treated for this. DESCRIPTION OF PROCEDURE: The patient was brought to the endoscopy suite, laid in left lateral decubitus position. After adequate IV pain and sedative medications and monitored anesthesia care, the mouthpiece was applied. The endoscope was placed in the mouth, visualizing the pharynx and hypopharyngeal region. Vocal cords, epiglottis and vallecula identified and appeared to be normal. Endoscope was then gently intubated the esophageal opening and esophagus insufflated. The endoscope was then advanced through the first, second and third portion of esophagus at the level of GE junction, a reflux esophagitis, [place] grade C identified with a mild distal esophageal stricture. A biopsy was taken with forceps with visualization of good hemostasis. The endoscope was then advanced into the stomach and endoscope retroflexed, visualizing a small to moderate size hiatal hernia approximately 2.5 cm in size. A moderate severity gastritis was noted. No formal ulcerations, polyps, or any neoplasms. A biopsy was taken of the antrum to rule out H. pylori with visualization of good hemostasis. The endoscope was then advanced through the pylorus and the first and second portion of the duodenum, which appeared normal with no distal obstructions. The balloon was then placed in the stomach and pulled back to the area of stricture. We then proceeded integrated stepwise fashion from 2, 4, then eventually 6 atmospheres of pressure or 20 mm in luminal diameter with moderate resistance and left this in place for approximately 60 seconds. The balloon was then desufflated and removed with visualization of good hemostasis as well as no mucosal tears. The endoscope was then slowly withdrawn while taking a second look and suctioning of residual air with no additional findings. The patient tolerated the procedure well. We will recommend the necessary lifestyle and dietary accommodation including small and more frequent meals, avoidance of eating at night as well as head elevation while lying supine. She also needs to avoid caffeinated beverages, spicy, greasy and acidic foods. We will start her on Protonix 40 mg daily as well. If there is a question of gastroparesis, gold standard test would be a nuclear gastric emptying study. Job ID: [id number] DocumentID: [id number] Dictated Date: 12/25/2021 15:00:38 Pneumatic Press Hand Date: 12/26/2021 00:32:13 Dictated By: LAZARA STANTON MD
== END 2021-12-25 15:34 | disposition home or self-care (01) ==
LOC: ENDO 12:28
PROVIDERS: ATTEND Surgery
DX: K21.00 Gastro-esophageal reflux disease with esophagitis, without bleeding (principal); K22.2 Esophageal obstruction; K29.70 Gastritis, unspecified, without bleeding; K44.9 Diaphragmatic hernia without obstruction or gangrene; E53.8 Deficiency of other specified B group vitamins; E66.9 Obesity, unspecified; Z68.38 Body mass index [BMI] 38.0-38.9, adult; Z88.8 Allergy status to other drugs, medicaments and biological substances
CPT/HCPCS: 84703